=== PATIENT | male | born 1990 | race African-American/Black ===

== ENCOUNTER → 2017-04-28 | Outpatient (CLI) | payer OTHER ==
--- NOTE | 2017-04-28 15:28 | XR ---
EXAMINATION TYPE: XR spine complete AP and Lat DATE OF EXAM: 04/28/2017 COMPARISON: 10/12/2015 HISTORY: Pain TECHNIQUE: 2 views of the cervical, 2 views of the thoracic, and 2 views of the lumbar spine are subm itted. FINDINGS: Cervical spine: Postsurgical changes appear during anatomic alignment. Degenerative disc disease C4-C 5. There is a retrolisthesis of C2 relative to C3 by approximately 2 mm. Prevertebral soft tissue str uctures within normal limits. Thoracic spine: There is postsurgical change involving the upper thoracic spine and apparent compress ion deformity in the region. Remaining portion of the thoracic spine is in anatomic alignment with th e pedicles are intact and no significant degenerative disc disease. Slight curvature of the upper tho racic spine near the area of surgery. Lumbar spine: There is degenerative disc disease L4-5 and L5-S1. Pedicles intact. No compression defo rmities. IMPRESSION: 1. Mild degenerative disc disease lower lumbar spine. 2. Postsurgical changes involving the cervical and thoracic spine. 3. Loss of cervical lordosis with a 2 mm retrolisthesis of C2 relative to C3. Correlate clinically.
== END ==
LOC: RADXRMAIN 14:52
PROVIDERS: ATTEND Internal Medicine
DX: M43.12 Spondylolisthesis, cervical region (principal); M47.816 Spondylosis without myelopathy or radiculopathy, lumbar region; Z98.890 Other specified postprocedural states
CPT/HCPCS: 72082

== ENCOUNTER 2018-08-04 12:10 | Inpatient (IN) | payer OTHER ==
[2018-08-04] MEDS ORDERED: SODIUM CHLORIDE 0.9% 1,000 ML IV STA (12:32)
--- NOTE | 2018-08-04 13:14 | ED ---
Syncope HPI - General Chief Complaint: Syncope Stated Complaint: Fell, head injury Time Seen by Provider: 08/04/18 12:23 Source: patient, family, RN notes reviewed Mode of arrival: wheelchair Limitations: no limitations - History of Present Illness Initial Comments: 28-year-old male presents emergency Department chief complaint of syncopal episode. Patient states that he is currently residing at the [facility]. Patient states that he went to stand up quickly from laying down to go to the bathroom states that he felt off balance, short of breath at that time. Patient states that he try to take a couple deep breaths and states that he woke up in the bathroom on the floor. Patient states he does have a headache and he has a knot on the back of his head. Patient states she does not report passing out. Patient denies any neck or back pain at this time. Patient denies any extremity injury. He states he does feel off, dizzy. Girlfriend in the room states that he just not his usual self that he is confused at times. Patient is able to ambulate with no difficulty. - Related Data Home Medications Medication Instructions Recorded Confirmed Acetaminophen 40 mg/1.25 ml 160 mg PO Q4H PRN 08/04/18 08/04/18 [Tylenol 40 mg/1.25 ml Oral Syringe] Multivitamin/Iron/Folic Acid 1 tab PO DAILY 08/04/18 08/04/18 [Centrum Adults Tablet] Allergies Allergy/AdvReac Type Severity Reaction Status Date / Time No Known Allergies Allergy Verified 08/04/18 12:58 Review of Systems ROS Statement: Those systems with pertinent positive or pertinent negative responses have been documented in the HPI. ROS Other: All systems not noted in ROS Statement are negative. Past Medical History Past Medical History: No Reported History History of Any Multi-Drug Resistant Organisms: None Reported Past Surgical History: Back Surgery Additional Past Surgical History / Comment(s): neck surgery Past Psychological History: No Psychological Hx Reported Smoking Status: Current every day smoker Past Alcohol Use History: None Reported Past Drug Use History: Marijuana General Exam Limitations: no limitations General appearance: alert, in no apparent distress Head exam: Present: atraumatic, normocephalic. Absent: normal inspection ( Hematoma noted on the occipital region of the scalp) Eye exam: Present: normal appearance, PERRL, EOMI. Absent: scleral icterus, conjunctival injection, periorbital swelling ENT exam: Present: normal exam, normal oropharynx, mucous membranes moist Neck exam: Present: normal inspection, full ROM. Absent: tenderness, meningismus, lymphadenopathy Respiratory exam: Present: normal lung sounds bilaterally. Absent: respiratory distress, wheezes, rales, rhonchi, stridor Cardiovascular Exam: Present: regular rate, normal rhythm, normal heart sounds. Absent: systolic murmur, diastolic murmur, rubs, gallop, clicks GI/Abdominal exam: Present: soft, normal bowel sounds. Absent: distended, tenderness, guarding, rebound, rigid Extremities exam: Present: normal inspection, full ROM, normal capillary refill. Absent: tenderness, pedal edema, joint swelling, calf tenderness Neurological exam: Present: alert, oriented X3, CN II-XII intact, reflexes normal, other (GCS of 15, finger to nose intact without over shooting). Absent : motor sensory deficit Skin exam: Present: warm, dry, intact, normal color. Absent: rash Course Vital Signs 08/04/18 08/04/18 12:25 13:45 Temperature 96.8 F L Pulse Rate 66 77 Respiratory 18 20 Rate Blood Pressure 145/94 145/94 O2 Sat by Pulse 98 97 Oximetry Medical Decision Making - Medical Decision Making 28-year-old male present emergency department for syncopal episode. Patient did have CT, lab work, EKG. Unremarkable imaging. Patient is cleared from his head injury there is no significant head injury noted. Patient will be admitted for cardiology evaluation, echocardiogram and hydration at this time. - Lab Data Result diagrams: 08/04/18 12:40 08/04/18 12:40 Lab Results 08/04/18 08/04/18 08/04/18 Range/Units 12:40 12:40 12:40 WBC 17.3 H (3.8-10.6) k/uL RBC 4.73 (4.30-5.90) m/uL Hgb 14.8 (13.0-17.5) gm/dL Hct 45.2 (39.0-53.0) % MCV 95.4 (80.0-100.0) fL MCH 31.2 (25.0-35.0) pg MCHC 32.7 (31.0-37.0) g/dL RDW 13.2 (11.5-15.5) % Plt Count 244 (150-450) k/uL Neutrophils % 90 % Lymphocytes % 5 % Monocytes % 4 % Eosinophils % 1 % Basophils % 0 % Neutrophils # 15.6 H (1.3-7.7) k/uL Lymphocytes # 0.9 L (1.0-4.8) k/uL Monocytes # 0.6 (0-1.0) k/uL Eosinophils # 0.1 (0-0.7) k/uL Basophils # 0.0 (0-0.2) k/uL PT 10.5 (9.0-12.0) sec INR 1.0 (<1.2) APTT 24.5 (22.0-30.0) sec D-Dimer 3.92 H (<0.60) mg/L FEU Sodium 141 (137-145) mmol/L Potassium 4.6 (3.5-5.1) mmol/L Chloride 105 (98-107) mmol/L Carbon Dioxide 29 (22-30) mmol/L Anion Gap 7 mmol/L BUN 15 (9-20) mg/dL Creatinine 0.73 (0.66-1.25) mg/dL Est GFR (CKD-EPI)AfAm >90 (>60 ml/min/1.73 sqM) Est GFR (CKD-EPI)NonAf >90 (>60 ml/min/1.73 sqM) Glucose 99 (74-99) mg/dL Calcium 10.0 (8.4-10.2) mg/dL Magnesium 1.7 (1.6-2.3) mg/dL Total Bilirubin 0.4 (0.2-1.3) mg/dL AST 28 (17-59) U/L ALT 40 (21-72) U/L Alkaline Phosphatase 62 (38-126) U/L Troponin I (0.000-0.034) ng/mL Total Protein 7.5 (6.3-8.2) g/dL Albumin 4.3 (3.5-5.0) g/dL Urine Color Urine Appearance (Clear) Urine pH (5.0-8.0) Ur Specific Stephan (1.001-1.035) Urine Protein (Negative) Urine Glucose (UA) (Negative) Urine Ketones (Negative) Urine Blood (Negative) Urine Nitrite (Negative) Urine Bilirubin (Negative) Urine Urobilinogen (<2.0) mg/dL Ur Leukocyte Esterase (Negative) 08/04/18 08/04/18 Range/Units 12:40 13:45 WBC (3.8-10.6) k/uL RBC (4.30-5.90) m/uL Hgb (13.0-17.5) gm/dL Hct (39.0-53.0) % MCV (80.0-100.0) fL MCH (25.0-35.0) pg MCHC (31.0-37.0) g/dL RDW (11.5-15.5) % Plt Count (150-450) k/uL Neutrophils % % Lymphocytes % % Monocytes % % Eosinophils % % Basophils % % Neutrophils # (1.3-7.7) k/uL Lymphocytes # (1.0-4.8) k/uL Monocytes # (0-1.0) k/uL Eosinophils # (0-0.7) k/uL Basophils # (0-0.2) k/uL PT (9.0-12.0) sec INR (<1.2) APTT (22.0-30.0) sec D-Dimer (<0.60) mg/L FEU Sodium (137-145) mmol/L Potassium (3.5-5.1) mmol/L Chloride (98-107) mmol/L Carbon Dioxide (22-30) mmol/L Anion Gap mmol/L BUN (9-20) mg/dL Creatinine (0.66-1.25) mg/dL Est GFR (CKD-EPI)AfAm (>60 ml/min/1.73 sqM) Est GFR (CKD-EPI)NonAf (>60 ml/min/1.73 sqM) Glucose (74-99) mg/dL Calcium (8.4-10.2) mg/dL Magnesium (1.6-2.3) mg/dL Total Bilirubin (0.2-1.3) mg/dL AST (17-59) U/L ALT (21-72) U/L Alkaline Phosphatase (38-126) U/L Troponin I <0.012 (0.000-0.034) ng/mL Total Protein (6.3-8.2) g/dL Albumin (3.5-5.0) g/dL Urine Color Yellow Urine Appearance Clear (Clear) Urine pH 8.0 (5.0-8.0) Ur Specific Stephan 1.015 (1.001-1.035) Urine Protein Negative (Negative) Urine Glucose (UA) Negative (Negative) Urine Ketones Negative (Negative) Urine Blood Negative (Negative) Urine Nitrite Negative (Negative) Urine Bilirubin Negative (Negative) Urine Urobilinogen <2.0 (<2.0) mg/dL Ur Leukocyte Esterase Negative (Negative) Disposition Clinical Impression: Syncope, Leukocytosis, Head injury Disposition: ADMITTED IP TO THIS HOSP Condition: Fair Referrals: Kylee Brown MD [Primary Care Provider] - 1-2 days
[2018-08-04 13:20] LABS: Basophils % (A) 0 %; Eosinophils # (A) 0.1 k/uL (0-0.7); Eosinophils % (A) 1 %; HCT 45.2 % (39.0-53.0); HGB 14.8 gm/dL (13.0-17.5); Lymphocytes # (A) 0.9 k/uL (1.0-4.8); Lymphocytes % (A) 5 %; MCH 31.2 pg (25.0-35.0); MCHC 32.7 g/dL (31.0-37.0); MCV 95.4 fL (80.0-100.0); Mean Platelet Volume 7.5; Monocytes # (A) 0.6 k/uL (0-1.0); Monocytes % (A) 4 %; Neutrophils # (A) 15.6 k/uL (1.3-7.7); Neutrophils % (A) 90 %; Platelet Count 244 k/uL (150-450); RBC 4.73 m/uL (4.30-5.90); RDW 13.2 % (11.5-15.5); WBC 17.3 k/uL (3.8-10.6)
[2018-08-04 13:30] LABS: ALT 40 U/L (21-72); AST 28 U/L (17-59); Albumin 4.3 g/dL (3.5-5.0); Alkaline Phosphatase 62 U/L (38-126); Anion Gap 7 mmol/L; Blood Urea Nitrogen 15 mg/dL (9-20); Carbon Dioxide 29 mmol/L (22-30); Chloride 105 mmol/L (98-107); Glucose 99 mg/dL (74-99); Magnesium 1.7 mg/dL (1.6-2.3); Potassium 4.6 mmol/L (3.5-5.1); Sodium 141 mmol/L (137-145); Total Bilirubin 0.4 mg/dL (0.2-1.3); Total Protein 7.5 g/dL (6.3-8.2)
[2018-08-04 13:33] LABS: Partial Thromboplastin Time 24.5 sec (22.0-30.0); Prothrombin Time 10.5 sec (9.0-12.0)
[2018-08-04 13:36] LABS: D-Dimer 3.92 mg/L FEU (<0.60)
--- NOTE | 2018-08-04 13:36 | XR ---
EXAMINATION TYPE: XR chest 2V DATE OF EXAM: 08/04/2018 COMPARISON: NONE HISTORY: Syncope and weakness. TECHNIQUE: Frontal and lateral views of the chest are obtained. FINDINGS: There is no focal air space opacity, pleural effusion, or pneumothorax seen. The cardiac silhouette size is within normal limits. Fusion plate lower cervical spine is noted. Posterior fusion hardware in cervical spine is partially imaged. Additional posterior fusion hardware upper thoracic spine is noted. IMPRESSION: No acute cardiopulmonary process.
--- NOTE | 2018-08-04 13:44 | CT ---
EXAMINATION TYPE: CT brain jaida mirza DATE OF EXAM: 08/04/2018 COMPARISON: 07/13/2012 HISTORY: Fall today with posterior injury. Head and neck pain. CT DLP: 1500.[address] Brain: Unenhanced CT of the brain was performed. The ventricles, basal cisterns and sulci overlying the cerebral convexities demonstrate a normal appe arance. There is no evidence for intracranial hemorrhage or sulcal effacement. No mass effects are seen. If symptoms persist consider MRI. Osseous calvarium is intact. IMPRESSION: No acute intracranial process CT Cervical Spine: Unenhanced CT of the cervical spine was performed with bone and soft tissue window settings submitted . Coronal and sagittal reconstruction is obtained. There is normal alignment and prevertebral soft tissues. I do not see evidence for fracture or sublu xation. Postoperative changes of ACDF with intervertebral stabilizer at C5-C7. Curvature of the cervi dipak spine convex to the left. The lung apices are clear. IMPRESSION: No evidence for acute fracture or subluxation of the cervical spine.
[2018-08-04 14:17] LABS: Appearance,Urine Clear (Clear); Bilirubin,Urine Negative (Negative); Blood,Urine Negative (Negative); Color,Urine Yellow; Glucose,Urine (UA) Negative (Negative); Ketones,Urine Negative (Negative); Leukocyte Esterase,Urine Negative (Negative); Nitrite,Urine Negative (Negative); Protein,Urine Negative (Negative); Specific Gravity,Urine 1.015 (1.001-1.035); Urobilinogen,Urine <2.0 mg/dL (<2.0)
--- NOTE | 2018-08-04 15:01 | CT ---
EXAMINATION TYPE: CT chest angio for PE DATE OF EXAM: 08/04/2018 COMPARISON: None HISTORY: Chest pain with shortness of breath CT DLP: 284 mGycm CONTRAST: CT chest with contrast and 3D reconstruction with MIP imaging is performed with IV Contrast, patient injected with 100 mL of Isovue 370. Contrast-enhanced CT of the chest was performed through the course of the pulmonary arteries with vaishnavi g and mediastinal window settings submitted. 3D reconstruction with MIP imaging was also performed. PULMONARY ARTERIES: The pulmonary arteries and their major tributaries are patent. I do not see reji dence for sizable filling defect to suggest pulmonary embolic process. LUNGS: The lungs are clear and free of infiltrate. No evidence for atelectasis. No pulmonary nodule or mass is detected. No pleural effusion. MEDIASTINUM: Thoracic aorta is of normal caliber,however, evaluation is limited given timing of the contrast bolus. If there is concern for thoracic aortic pathology consider ANA. Correlate clinicall y . The heart is not enlarged. No evidence for mediastinal mass. No mediastinal lymph nodes greater than 1cm. HILAR STRUCTURES: No evidence for mass. No hilar lymph nodes greater than 1 cm. UPPER ABDOMEN: No significant abnormality is seen. IMPRESSION: 1. No evidence for Pulmonary embolism at this time.
[2018-08-04] MEDS ORDERED: METOCLOPRAMIDE 5 MG/ML 2 ML VIAL IVP STA (15:56)
[2018-08-04] MEDS ORDERED: diphenhydrAMINE 50 MG/ML 1 ML VIAL IVP STA (15:57)
[2018-08-04] MEDS ORDERED: NALOXONE 0.4 MG/ML 1 ML VIAL IV PRN (16:00)
[2018-08-04] MEDS ORDERED: ONDANSETRON 4 MG/2 ML VIAL IVP PRN (16:00)
[2018-08-04] MEDS: ACETAMINOPHEN TAB 325 MG TAB PO PRN ×2 (17:41→22:56)
[2018-08-04] MEDS: SODIUM CHLORIDE 0.9% 1,000 ML IV SCH (17:42)
[2018-08-04 20:20] VITALS: BMI 24.3
[2018-08-05] MEDS: ACETAMINOPHEN TAB 325 MG TAB PO PRN ×2 (04:39→20:51)
[2018-08-05] MEDS: SODIUM CHLORIDE 0.9% 1,000 ML IV SCH ×2 (04:41→14:07)
[2018-08-05] MEDS ORDERED: KETOROLAC 30 MG/ML 1 ML VIAL IVP STA (08:56)
--- NOTE | 2018-08-05 09:36 | P.CNNES ---
History of Present Illness Consult date: 08/05/18 Reason for Consult: Patient admitted with syncope vs. seizure. History of Present Illness: This patient is a 28-year-old right-handed white male who was in his usual state of health yesterday morning. Patient states that about 10 AM he had gone into the bathroom and it just finished urinating when he stepped out of the bathroom he was feeling lightheaded and off balance. Patient has no recollection what happened next but he found himself collapsed on the floor of the bathroom for at least 10 minutes and is unsure what had happened. Patient states that he was feeling increased pressure on his chest as if his heart was pounding just prior to this event. On further questioning he did feel slightly diaphoretic prior to the event as well. He began taking some deep breaths and apparently had some shortness of breath at the onset of the symptoms. He then remembers being on the ground and feeling very tired and groggy. He did not have any loss of bowel or bladder control. When he stood up he felt off- balance and had to have his help him. She noted that he was just not himself and he appeared to be very pale and complexion. His was able to help him into the other room and he appeared to be still having symptoms of lightheadedness. Patient denies having any previous history of seizures or acute syncopal episodes in the past. He did not bite his tongue and once again had no evidence of ongoing seizure activity when his found him in the bathroom. The patient was brought into the emergency room at [facility] and was evaluated by Physician [facility]. He was sent for a computed tomography scan of the brain which revealed no acute intracranial process. Computed tomography scan of the cervical spine revealed no evidence of acute fracture or subluxation of the cervical spine. He was also sent for a CTA angiogram of the chest which came back negative for pulmonary embolism. Once again the patient is resting comfortably but still feels lightheaded at times. He is going to be evaluated by cardiology today for further cardiac workup as well. Patient does have a slight headache today. We have recommended further evaluation for the patient including an EEG to rule out seizure disorder as well as MRI of the brain. Patient did not sustain any major injury to the head with no lacerations or contusions. His is at bedside and states that she did not appreciate any seizure activity when she found him on the floor. She did mention however that he did appear to be quite pale. The patient is now admitted and neurology has been consulted for further evaluation and recommendations. Review of Systems Constitutional: Denies chills, Denies fever Eyes: denies blurred vision, denies pain Ears, nose, mouth and throat: Denies headache, Denies sore throat Cardiovascular: Denies chest pain, Denies shortness of breath Respiratory: Denies cough Gastrointestinal: Denies abdominal pain, Denies diarrhea, Denies nausea, Denies vomiting Musculoskeletal: Denies myalgias Integumentary: Denies pruritus, Denies rash Neurological: Reports confusion, Reports headaches, Reports syncope, Denies numbness, Denies weakness Psychiatric: Denies anxiety, Denies depression Endocrine: Denies fatigue, Denies weight change Past Medical History Past Medical History: No Reported History History of Any Multi-Drug Resistant Organisms: None Reported Past Surgical History: Back Surgery Additional Past Surgical History / Comment(s): neck surgery, L4-L7 Fusion, Past Anesthesia/Blood Transfusion Reactions: No Reported Reaction Past Psychological History: No Psychological Hx Reported Smoking Status: Current every day smoker Past Alcohol Use History: None Reported Past Drug Use History: Marijuana Medications and Allergies Home Medications Medication Instructions Recorded Confirmed Type Acetaminophen 40 mg/1.25 ml 160 mg PO Q4H PRN 08/04/18 08/04/18 History [Tylenol 40 mg/1.25 ml Oral Syringe] Multivitamin/Iron/Folic Acid 1 tab PO DAILY 08/04/18 08/04/18 History [Centrum Adults Tablet] Allergies Allergy/AdvReac Type Severity Reaction Status Date / Time No Known Allergies Allergy Verified 08/04/18 12:58 Physical Examination - Vital Signs Vital Signs: Vital Signs Temp Pulse Pulse Resp BP BP Pulse Ox 08/05/18 07:15 98.7 F 88 18 107/65 98 08/05/18 04:00 91 18 08/05/18 03:06 85 18 126/78 98 08/05/18 00:00 91 18 08/04/18 23:08 100.2 F H 91 18 111/65 98 08/04/18 20:00 100.2 F H 75 18 120/70 98 08/04/18 17:46 86 18 116/86 99 08/04/18 16:05 99 F 83 20 129/74 96 08/04/18 13:45 77 20 145/94 97 08/04/18 12:25 96.8 F L 66 18 145/94 98 Intake and Output 08/04/18 08/05/18 08/05/18 22:59 06:59 14:59 Intake Total 600 400 Balance 600 400 Intake: Intake, IV Titration 600 Amount Sodium Chloride 0.9% 1, 600 000 ml @ 75 mls/hr IV . [id number] [facility] Rx#:[id number] Oral 400 Other: Weight 86.183 kg - Constitutional General appearance: average body habitus, cooperative - EENT EENT: PERRL, mucous membranes moist - Respiratory Respiratory: lungs clear, normal breath sounds - Cardiovascular Cardiovascular: regular rate, normal S1, normal S2 Extremities: no peripheral edema bilaterally - Gastrointestinal Gastrointestinal: normoactive bowel sounds - Integumentary Integumentary: normal - Neurologic Cranial nerve examination: PERRL, VFF, V1/V2/V3 grossly intact, face symmetric, intact gag reflex, intact corneal reflex, palatal deviation Speech examination: intact Sensorimotor examination: intact Motor examination - right side: 4/5: biceps, triceps, wrist flexion, wrist extension, 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, hip flexors, knee extensors, dorsiflexion, toe extension (EHL) , plantarflexion Motor examination - left side: 4/5: biceps, triceps, wrist flexion, wrist extension, 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, hip flexors, knee extensors, dorsiflexion, toe extension (EHL) , plantarflexion Detailed sensory examination: intact Reflex and gait examination: intact Reflexes: 1+: ankle, bicep, knee, tricep - Musculoskeletal Musculoskeletal: no pain - Psychiatric Psychiatric: mood/affect appropriate, cooperative Results - Laboratory Findings CBC and BMP: 08/04/18 12:40 08/04/18 12:40 Abnormal Lab Findings: Abnormal Labs 08/04/18 08/04/18 12:40 12:40 WBC 17.3 H Neutrophils # 15.6 H Lymphocytes # 0.9 L D-Dimer 3.92 H Assessment and Plan (1) Vasovagal syncope Current Visit: Yes Status: Acute Code(s): R55 - SYNCOPE AND COLLAPSE SNOMED Code(s): 185935309 (2) Hx of cervical spine surgery Current Visit: Yes Status: Acute Code(s): Z98.890 - OTHER SPECIFIED POSTPROCEDURAL STATES SNOMED Code(s): 749635914 (3) Head injury Current Visit: Yes Status: Acute Code(s): S09.90XA - UNSPECIFIED INJURY OF HEAD, INITIAL ENCOUNTER SNOMED Code(s): 93009218 (4) Leukocytosis Current Visit: Yes Status: Acute Code(s): D72.829 - ELEVATED WHITE BLOOD CELL COUNT, UNSPECIFIED SNOMED Code(s): 345315947 Plan: This patient is a 28-year-old male who was admitted to [facility] yesterday after having an acute syncopal episode at home. Patient states that about 10 AM he had gone into the bathroom and it just finished urinating when he stepped out and felt lightheaded and near syncopal. He collapsed to the ground and was possibly on the ground for at least 10 minutes before he realized what had occurred. His found him to be very unsteady when she assisted him to the other room and he appeared to be very pale in complexion. He denies any previous history of syncope or seizures. He has had some cardiac abnormalities in the past but has not required any major intervention. He has had near syncope episode about a year ago. The patient did not have any evidence of seizure-like activity during this event. He was brought into the emergency room and subsequent admitted to Hospital. Computed tomography scan of the brain and cervical spine were negative. CT angiogram of the chest was negative for pulmonary embolus. We have recommended the patient undergo a MRI of the brain as well as a routine EEG for further evaluation of near syncope. His clinical history suggests most likely vasovagal syncope related to micturition as a cause of his episode. We will await further evaluation by cardiology as well. Patient is advised of the [place] driving law which states he should not be driving for appeared of 6 months following any seizure and/or syncopal episode. We have recommended further monitoring of this patient to rule out orthostatic hypotension. We will await further recommendations from cardiology in terms of assessment of this near syncopal episode. His overall prognosis at this time remains very guarded. Time with Patient: Greater than 30
--- NOTE | 2018-08-05 12:21 | P.CRDCN ---
History of Present Illness History of present illness: This is a pleasant 28-year-old male past medical history significant for chronic nicotine dependence. He denies history of coronary artery disease, hypertension, dyslipidemia or diabetes mellitus. He states his mother underwent open heart surgery in her 30s for a hole in her heart. We have been asked to see him in consultation for syncope. Yesterday morning he woke up to use the bathroom, upon rising from bed he felt mildly lightheaded. He continued on to use the bathroom to urinate. No bowel mvement. After finishing urinating he started walking out of the bathroom and started feeling his heart beating harder in his chest. He denies a rapid heart beat, just that it felt like it was beating hard. He denies chest pain, shortness of breath, nausea, vomiting or diaphoresis. Next thing he can recall he woke up on the bathroom floor. Upon waking up he he thinks he was mildly diaphoretic but denies feeling any further palpitations. He denies any obvious seizure activity or loss of bowel/bladder. He denies history of seizures in the past. He continues to feel light headed that is worse with movement. He also complains of feeling congested. Denies cough, fever or chills. EKG reveals sinus mechanism with incomplete right bundle branch block and rightward axis. Chest x-ray is negative for an acute cardiopulmonary process. CT head and cervical spine is negative for an acute process. CT angio chest negative for pulmonary embolism. Laboratory data reviewed, WBC 17.3, hemoglobin 14.8, platelets 244, d-dimer 3.92 , sodium 141, potassium 4.6, magnesium 1.7, creatinine 0.73, cardiac enzymes negative 1. He takes no daily cardiac medications. At the time of my exam: CONSTITUTIONAL: Denies fever. Denies chills. EYES: Denies blurred vision. Denies vision changes. Denies eye pain. EARS, NOSE, MOUTH & THROAT: Denies headache. Denies sore throat. Denies ear pain. CARDIOVASCULAR: Denies chest pain. Denies shortness of breath. Denies orthopnea. Denies PND. Denies palpitations. RESPIRATORY: Denies cough. GASTROINTESTINAL: Denies abdominal pain. Denies diarrhea. Denies constipation. Denies nausea. Denies vomiting. MUSCULOSKELETAL: Denies myalgias. INTEGUMENTARY: Denies pruitis. Denies rash. NEUROLOGIC: Denies numbness. Denies tingling. Denies weakness. PSYCHIATRIC: Denies anxiety. Denies depression. ENDOCRINE: Denies fatigue. Denies weight change. Denies polydipsia. Denies polyurina. GENITOURINARY: Denies burning, hematuria or urgency with micturation. HEMATOLOGIC: Denies history of anemia. Denies bleeding. Blood pressure 107/65 heart rate 81 afebrile maintaining oxygen saturation on room air GENERAL: This is a 28-year-old male in no apparent distress at the time of my examination. HEENT: Head is atraumatic, normocephalic. Pupils are equal, round. Sclerae anicteric. Conjunctivae are clear. Mucous membranes of the mouth are moist. Neck is supple. There is no jugular venous distention. No carotid bruit is heard. LUNGS: Clear to auscultation no wheezes, rales or rhonchi. No chest wall tenderness is noted on palpation or with deep breathing. HEART: Regular rate and rhythm without murmurs, rubs or gallops. S1 and S2 heard. ABDOMEN: Soft, nontender. Bowel sounds are heard. No organomegaly noted. EXTREMITIES: No evidence of peripheral edema and no calf tenderness noted. VASCULAR: Radial and dorsalis pedis pulses palpated, no evidence of clubbing. NEUROLOGIC: Patient is awake, alert and oriented x3. ASSESSMENT Syncope, possibly related to vasovagal reaction Leukocytosis Elevated d-dimer PLAN Obtain 2D echocardiogram and doppler study to assess cardiac structure and function. Ongoing evaluation with neurology with MRI and EEG. Ongoing telemetry monitoring for any acute arrhythmia. Check urine drug screen. Thank you kindly for this consultation. Nurse Practitioner note has been reviewed, I agree with a documented findings and plan of care. Patient was seen and examined. Past Medical History Past Medical History: No Reported History History of Any Multi-Drug Resistant Organisms: None Reported Past Surgical History: Back Surgery Additional Past Surgical History / Comment(s): neck surgery, L4-L7 Fusion, Past Anesthesia/Blood Transfusion Reactions: No Reported Reaction Past Psychological History: No Psychological Hx Reported Smoking Status: Current every day smoker Past Alcohol Use History: None Reported Past Drug Use History: Marijuana Medications and Allergies Home Medications Medication Instructions Recorded Confirmed Type Acetaminophen 40 mg/1.25 ml 160 mg PO Q4H PRN 08/04/18 08/04/18 History [Tylenol 40 mg/1.25 ml Oral Syringe] Multivitamin/Iron/Folic Acid 1 tab PO DAILY 08/04/18 08/04/18 History [Centrum Adults Tablet] Allergies Allergy/AdvReac Type Severity Reaction Status Date / Time No Known Allergies Allergy Verified 08/04/18 12:58 Physical Exam Vitals: Vital Signs Temp Pulse Pulse Resp BP BP Pulse Ox 08/05/18 07:15 98.7 F 88 18 107/65 98 08/05/18 04:00 91 18 08/05/18 03:06 85 18 126/78 98 08/05/18 00:00 91 18 08/04/18 23:08 100.2 F H 91 18 111/65 98 08/04/18 20:00 100.2 F H 75 18 120/70 98 08/04/18 17:46 86 18 116/86 99 08/04/18 16:05 99 F 83 20 129/74 96 08/04/18 13:45 77 20 145/94 97 08/04/18 12:25 96.8 F L 66 18 145/94 98 Intake and Output 08/04/18 08/05/18 08/05/18 22:59 06:59 14:59 Intake Total 600 800 Balance 600 800 Intake: Intake, IV Titration 600 Amount Sodium Chloride 0.9% 1, 600 000 ml @ 75 mls/hr IV . [id number] [facility] Rx#:[id number] Oral 400 Other 400 Other: Weight 86.183 kg Results 08/04/18 12:40 08/04/18 12:40 Cardiac Enzymes 08/04/18 08/04/18 Range/Units 12:40 12:40 AST 28 (17-59) U/L Troponin I <0.012 (0.000-0.034) ng/mL Coagulation 08/04/18 Range/Units 12:40 PT 10.5 (9.0-12.0) sec APTT 24.5 (22.0-30.0) sec CBC 08/04/18 Range/Units 12:40 WBC 17.3 H (3.8-10.6) k/uL RBC 4.73 (4.30-5.90) m/uL Hgb 14.8 (13.0-17.5) gm/dL Hct 45.2 (39.0-53.0) % Plt Count 244 (150-450) k/uL Comprehensive Metabolic Panel 08/04/18 Range/Units 12:40 Sodium 141 (137-145) mmol/L Potassium 4.6 (3.5-5.1) mmol/L Chloride 105 (98-107) mmol/L Carbon Dioxide 29 (22-30) mmol/L BUN 15 (9-20) mg/dL Creatinine 0.73 (0.66-1.25) mg/dL Glucose 99 (74-99) mg/dL Calcium 10.0 (8.4-10.2) mg/dL AST 28 (17-59) U/L ALT 40 (21-72) U/L Alkaline Phosphatase 62 (38-126) U/L Total Protein 7.5 (6.3-8.2) g/dL Albumin 4.3 (3.5-5.0) g/dL Current Medications Generic Name Dose Route Start Last Admin Trade Name Freq PRN Reason Stop Dose Admin Acetaminophen 650 mg 08/04/18 16:00 08/05/18 04:39 Tylenol Tab PO 650 mg Q6HR PRN Administration Mild Pain or Fever > 100.5 Sodium Chloride 1,000 mls @ 75 mls/hr 08/04/18 16:00 08/05/18 04:41 Saline 0.9% IV 75 mls/hr .[id number] [facility] Administration Naloxone HCl 0.2 mg 08/04/18 16:00 Narcan IV Q2M PRN Opioid Reversal Ondansetron HCl 4 mg 08/04/18 16:00 Zofran IVP Q8HR PRN Nausea And Vomiting Intake and Output 08/04/18 08/05/18 08/05/18 22:59 06:59 14:59 Intake Total 600 800 Balance 600 800 Intake: Intake, IV Titration 600 Amount Sodium Chloride 0.9% 1, 600 000 ml @ 75 mls/hr IV . [id number] [facility] Rx#:[id number] Oral 400 Other 400 Other: Weight 86.183 kg 08/04/18 12:40 08/04/18 12:40
--- NOTE | 2018-08-05 13:24 | MR ---
EXAMINATION TYPE: MR brain wo con DATE OF EXAM: 08/05/2018 COMPARISON: CT brain from yesterday and older CT 2012 HISTORY: Patient with syncopal episode and head trauma TECHNIQUE: Multiplanar, multisequence imaging of the brain and brainstem is performed without IV cont rast. FINDINGS: Diffusion weighted images demonstrate no evidence of a recent infarct or other diffusion abnormality. There is no worrisome extra-axial fluid collection. The ventricular system and cisternal spaces are normal in size and appearance. The brain volume is age appropriate. There is occasional tiny focus o f T2 hyperintensity scattered throughout the white matter. Roughly 10-15 lesions are felt present mos t numerous on axial image 20, all lesions are punctate or measuring under 4 mm in size. T2 Star weigh alfa images show no suspicious intraparenchymal blood product. There is moderate size high right occip ital scalp hematoma extending to right and left aspects slightly more prominent or larger than visual ized on CT. Midline structures demonstrate normal morphology. The craniocervical junction appears within normal limits. Normal vascular flow voids are present. The visualized sinuses are clear and the globes are i ntact. Nasal septum remains slightly deviated to left of midline. IMPRESSION: No suspicious intraparenchymal blood product. Moderate size high midline acute occipital scalp hematoma larger in size versus recent CT.
--- NOTE | 2018-08-05 13:53 | P.HPIM ---
History of Present Illness 28-year-old pleasant gentleman came in after after syncopal episode patient is having generalized body aches fever mild photophobia patient does have a did have Surgeries in the past and upper thoracic surgeries patient does have some neck rigidity which is new and neck pain which is new from before. I'm obtaining influenza testing patient was a valid by neurology patient was evaluated for seizure disorder patient had an MRI which was which did not show any significant abnormality and the patient appeared to have vasovagal syncope. Testing his fever body aches. Probably has acute viral illness low possibility of viral meningitis which cannot be completely ruled out because of which I'll obtain an LP. Patient will not be started on any antibiotics and acyclovir at this time until we get the LP. Patient denied any fever chills awaiting echocardiogram because of his syncope. Patient did have palpitations before his syncopal episode felt lightheaded and lost consciousness for about 10 minutes no evidence of seizure-like activity loss of bowel or bladder incontinence, no tongue biting. Patient denied dysuria cough patient had an elevated d-dimer because of which in ER patient had a CT angios the chest which did not show any pulmonary embolism rest of the workup is all negative.patient has mild photophobia which started today. Kernig's and Brudzinski's signs are negative Review of Systems REVIEW OF SYSTEMS: CONSTITUTIONAL:mentioned in HPI HEENT: No recent visual problems or hearing problems. Denied any sore throat. CARDIOVASCULAR: No chest pain, orthopnea, PND, no palpitations, PULMONARY: No shortness of breath, no cough, no hemoptysis. GASTROINTESTINAL: No diarrhea, no nausea, no vomiting, no abdominal pain. NEUROLOGICAL: no weakness, no numbness. HEMATOLOGICAL: Denies any bleeding or petechiae. GENITOURINARY: Denies any burning micturition, frequency, or urgency. MUSCULOSKELETAL/RHEUMATOLOGICAL: any of neck pain and headache ENDOCRINE: Denies any polyuria or polydipsia. The rest of the 14-point review of systems is negative. Past Medical History Past Medical History: No Reported History History of Any Multi-Drug Resistant Organisms: None Reported Past Surgical History: Back Surgery Additional Past Surgical History / Comment(s): neck surgery, L4-L7 Fusion, Past Anesthesia/Blood Transfusion Reactions: No Reported Reaction Past Psychological History: No Psychological Hx Reported Smoking Status: Current every day smoker Past Alcohol Use History: None Reported Past Drug Use History: Marijuana Medications and Allergies Home Medications Medication Instructions Recorded Confirmed Type Acetaminophen 40 mg/1.25 ml 160 mg PO Q4H PRN 08/04/18 08/04/18 History [Tylenol 40 mg/1.25 ml Oral Syringe] Multivitamin/Iron/Folic Acid 1 tab PO DAILY 08/04/18 08/04/18 History [Centrum Adults Tablet] Allergies Allergy/AdvReac Type Severity Reaction Status Date / Time No Known Allergies Allergy Verified 08/04/18 12:58 Physical Exam Vitals: Vital Signs Temp Pulse Pulse Resp BP BP BP 08/05/18 11:34 98.5 F 81 16 118/74 08/05/18 07:15 98.7 F 88 18 107/65 08/05/18 04:00 91 18 08/05/18 03:06 85 18 126/78 08/05/18 00:00 91 18 08/04/18 23:08 100.2 F H 91 18 111/65 08/04/18 20:00 100.2 F H 75 18 120/70 08/04/18 17:46 86 18 116/86 08/04/18 16:05 99 F 83 20 129/74 Pulse Ox 08/05/18 11:34 97 08/05/18 07:15 98 08/05/18 04:00 08/05/18 03:06 98 08/05/18 00:00 08/04/18 23:08 98 08/04/18 20:00 98 08/04/18 17:46 99 08/04/18 16:05 96 Intake and Output 08/04/18 08/05/18 08/05/18 22:59 06:59 14:59 Intake Total 600 800 Balance 600 800 Intake: Intake, IV Titration 600 Amount Sodium Chloride 0.9% 1, 600 000 ml @ 75 mls/hr IV . [id number] [facility] Rx#:[id number] Oral 400 Other 400 Other: Weight 86.183 kg PHYSICAL EXAMINATION: GENERAL: The patient is alert and oriented x3, not in any acute distress. Well developed, well nourished. appears bit lethargic HEENT: Pupils are round and equally reacting to light. EOMI. No scleral icterus. No conjunctival pallor. Normocephalic, atraumatic. No pharyngeal erythema. No thyromegaly. CARDIOVASCULAR: S1 and S2 present. No murmurs, rubs, or gallops. PULMONARY: Chest is clear to auscultation, no wheezing or crackles. ABDOMEN: Soft, nontender, nondistended, normoactive bowel sounds. No palpable organomegaly. MUSCULOSKELETAL: No joint swelling or deformity. EXTREMITIES: No cyanosis, clubbing, or pedal edema. NEUROLOGICAL: Gross neurological examination did not reveal any focal deficits. mild photophobia but no phonophobia SKIN: No rashes. Results CBC & Chem 7: 08/04/18 12:40 08/04/18 12:40 Labs: Abnormal Lab Results - Last 24 Hours (Table) 08/04/18 Range/Units 12:40 D-Dimer 3.92 H (<0.60) mg/L FEU Thrombosis Risk Factor Assmnt - Choose All That Apply Any of the Below Risk Factors Present?: No Other Risk Factors: No Thrombosis Risk Factor Assessment Level: Very Low Risk Assessment and Plan Plan: -syncopal episode appears to be secondary to acute viral illness or a vasovagal event patient will continued on IV fluids echocardiogram will be obtained possibly of seizure is low although patient was evaluated by neurology for seizure. -Low-grade fever and generalized body aches probably secondary to acute viral illness considering her mild photophobia headache and increasing neck pain I cannot completely rule out viral meningitis possibility of bacterial meningitis is extremely low. We'll obtain lumbar puncture. Patient will not be started on any antibiotics at this included this time until number function is done. We 'll order influenza A and B testing infectious disease will be consulted. No pneumonia or urinary tract infection -back surgeries with fusion of L4 total 7 and neck surgery -nicotine abuse: Counseling was provided.
[2018-08-05] MEDS: KETOROLAC 30 MG/ML 1 ML VIAL IVP PRN ×2 (14:07→20:50)
[2018-08-05] MEDS ORDERED: SODIUM CHLORIDE 0.9% 1,000 ML IV ONE ×2 (19:51)
--- NOTE | 2018-08-05 19:54 | ECHOF ---
Referral Reason:Syncope MEASUREMENTS -------- HEIGHT: 182.9 cm WEIGHT: 86.2 kg BP: 126/78 IVSd: 1.0 cm (0.6 - 1.1) LVIDd: 4.7 cm (3.9 - 5.3) LVPWd: 1.2 cm (0.6 - 1.1) IVSs: 1.8 cm LVIDs: 2.3 cm LVPWs: 2.3 cm Ao Diam: 2.9 cm (2.0 - 3.7) AV Cusp: 2.5 cm (1.5 - 2.6) LA Diam: 3.8 cm (2.7 - 3.8) MV EXCURSION: 19.089 mm (> 18.000) MV EF SLOPE: 174 mm/s (70 - 150) EPSS: 0.3 cm MV E Santiago: 0.89 m/s MV DecT: 211 ms MV A Santiago: 0.66 m/s MV E/A Ratio: 1.35 RAP: 5.00 mmHg RVSP: 25.50 mmHg FINDINGS -------- Sinus rhythm. This was a technically good study. The left ventricular size is normal. Left ventricular wall thickness is normal. Overall left vent ricular systolic function is normal with, an EF between 55 - 60 %. The right ventricle is normal in size and function. The left atrium is normal in size. The right atrium is normal in size. The aortic valve is trileaflet, and appears structurally normal. No aortic stenosis or regurgitation. The mitral valve leaflets are mildly thickened. There is trace mitral regurgitation. Trace tricuspid regurgitation present. The right ventricular systolic pressure, as measured by Dopp ler, is 25.50mmHg. Pulmonic valve appears structurally normal. The aortic root size is normal. Normal inferior vena cava with normal inspiratory collapse consistent with estimated right atrial pre ssure of 5 mmHg. The pericardium is normal. CONCLUSIONS -------- 1. Sinus rhythm. 2. This was a technically good study. 3. The left ventricular size is normal. 4. Left ventricular wall thickness is normal. 5. Overall left ventricular systolic function is normal with, an EF between 55 - 60 %. 6. The right ventricle is normal in size and function. 7. The left atrium is normal in size. 8. The right atrium is normal in size. 9. The aortic valve is trileaflet, and appears structurally normal. No aortic stenosis or regurgitati on. 10. The mitral valve leaflets are mildly thickened. 11. There is trace mitral regurgitation. 12. Trace tricuspid regurgitation present. 13. The right ventricular systolic pressure, as measured by Doppler, is 25.50mmHg. 14. Pulmonic valve appears structurally normal. 15. The aortic root size is normal. 16. Normal inferior vena cava with normal inspiratory collapse consistent with estimated right atrial pressure of 5 mmHg. 17. The pericardium is normal. [employer]GAR CHIPPER MACHINE OPERATOR: Cher Peck RDCS
[2018-08-05] MEDS ORDERED: fentaNYL (PF) 50 MCG/ML 2 ML AMP IVP ONE (20:10)
--- NOTE | 2018-08-05 20:32 | EEG ---
ELECTROENCEPHALOGRAM REPORT DATE OF EE08/05/2018 ELECTROENCEPHALOGRAPHIC EXAMINATION REPORT: INDICATION FOR EXAMINATION: This patient is a 28-year-old male being evaluated for acute syncope and collapse. AGE: [age]. EEG FINDINGS: A routine 21-channel awake digital EEG recording was accomplished utilizing the 10-20 international system with bipolar and referential montages. The background activity in the most alert resting state consists of a low to medium amplitude, fairly well developed and well sustained 7-8 Hz activity over the posterior head regions. This posterior rhythm attenuates to eye opening. There is a small amount of low amplitude 18-20 Hz beta activity seen maximally over the anterior head regions. Muscle and movement artifact was observed on several occasions during the tracing. Hyperventilation was not performed. Photic stimulation at flash frequencies of 2-30 Hz produced a minimal occipital driving response. No epileptiform discharges were seen. IMPRESSION: This EEG is within normal limits for the patient's age. The EEG failed to reveal any focal, lateralized, or epileptiform abnormalities. Clinical correlation is recommended. MMODL / IJN: [id number] /
--- NOTE | 2018-08-05 20:42 | P.PCN ---
Date of Procedure: 08/05/18 Preoperative Diagnosis: Syncopal episode, possible acute head injury, meningismal signs and symptoms. Postoperative Diagnosis: Same Procedure(s) Performed: Diagnostic lumbar puncture Anesthesia: local Surgeon: Alphonso Mooney Estimated Blood Loss (ml): 0.1 IV fluids (ml): 30 Urine output (ml): 0 Pathology: other (4 specimen tubes numbered 1 through 4 filled sequentially with pink tinged cloudy CSF 3-4 mL per tube) Condition: stable Disposition: observation Indications for Procedure: Possible meningitis Operative Findings: See pathology above Description of Procedure: With the patient seated over the edge of the stretcher with his feet on a chair and after 50 g of fentanyl IV the lumbar back was sterilely prepped and draped. 0.1 mL of 2% plain lidocaine was used to raise a skin wheal over the L34 interspace and a 20-gauge quinke spinal needle was then advanced through the skin wheal with a moderate amount of difficulty into the spinal canal. 3-4 mL of lightly pink tinged somewhat cloudy CSF was then collected sequentially in specimen tubes numbered 1 through 4. The patient tolerated the procedure well and was discharged in stable condition back to his room on observation.
[2018-08-05 22:13] LABS: Glucose,CSF 63 mg/dL (40-70); Total Protein,CSF 89 mg/dL (12-60)
[2018-08-05 23:10] LABS: Appearance,CSF Blood Tinged
[2018-08-05 23:11] LABS: CSF Tube Number 4
[2018-08-05 23:31] LABS: Nucleated Cells, CSF 100 u/L (0-5); Red Blood Cell,CSF 4800 u/L (0-10)
[2018-08-05 23:40] LABS: Diff, Total Cells Cnt, CSF 100; Mononuclear WBC,CSF 36 %; Polynuclear WBC,CSF 64 %
[2018-08-05 23:41] LABS: Red Blood Cell, CSF Fresh 100 %
--- NOTE | 2018-08-05 23:44 | CONS ---
CONSULTATION DATE OF SERVICE: 08/05/2018 REASON FOR CONSULTATION: Fever and leukocytosis. HISTORY OF PRESENT ILLNESS: The patient is a 28-year-old male who was brought into the ER at [facility] yesterday after apparently having a syncopal episode. The patient said he went to stand up quickly from lying down to go to the bathroom. The patient felt off balance and short of breath. He fell to the ground. Subsequently he woke up on the bathroom floor. The patient has been complaining of a headache since then; not very clear if he hit his head or not. With these symptoms, the patient presented to the [facility] ER. On arrival, the patient had cervical and head CT with no evidence of any acute fracture or subluxation. A CT angiogram was negative for PE. The patient did spike a fever of 101 degrees Fahrenheit and his white count was mildly elevated. That prompted this infectious disease consultation. The patient still has a headache. Headache is described to be more throbbing in nature, almost 7 to 8 out of 10, and no radiation. The patient has some nausea but no vomiting. Did have slight photophobia. The patient denies having any chest pain or shortness of breath or cough. No abdominal pain. No diarrhea. REVIEW OF SYSTEMS: CONSTITUTIONAL: Positive for weakness, fever. EYES: No complaint. ENT: No complaint. RESPIRATORY: As per HPI. CARDIOVASCULAR: No complaint. GENITOURINARY: No complaint. GASTROINTESTINAL: No complaint. MUSCULOSKELETAL: No complaint. INTEGUMENTARY: No complaint. PSYCHOLOGICAL: No complaint. ENDOCRINE: No complaint. NEUROLOGICAL: As per HPI. PAST MEDICAL HISTORY: No major illnesses. PAST SURGICAL HISTORY: Back and neck surgery. SOCIAL HISTORY: Patient is a current everyday smoker. Admits to marijuana use. No drinking. ALLERGIES: NO KNOWN DRUG ALLERGIES. FAMILY HISTORY: No pertinent findings noticed. MEDICATIONS: The patient is currently on: 1. Zofran. 2. Narcan. 3. Toradol. 4. Tylenol. PHYSICAL EXAMINATION: Blood pressure is 116/64, pulse of 60, temperature of 100.8, T-max 101 degrees Fahrenheit. He is 97% on room air. General description is a middle-aged male lying in bed in no distress. No tachypnea or accessory muscle of respiration use. HEENT examination shows no pallor or scleral icterus. Oral mucosa membrane is dry. No pharyngeal erythema or thrush. NECK: Trachea is central. No thyromegaly. LUNGS: Unlabored breathing. Clear to auscultation. No wheeze or crackle. HEART: S1, S2. Regular rate and rhythm. ABDOMEN: Soft. No tenderness. No guarding or rigidity. EXTREMITIES: No edema of the feet. SKIN EXAMINATION: No rash or mass palpable. Neurologically the patient is awake, alert, oriented x3. No significant neck rigidity was noted. LABS: Hemoglobin is 14.8, white count 17.3, BUN of 15, creatinine 0.76. Electrolytes have been normal. Liver enzymes are normal. Urine is negative. Chest x-ray negative for pneumonia. DIAGNOSTIC IMPRESSION AND PLAN: Patient with a headache in this patient who presented to hospital with a syncopal episode. He did have a fall. This patient did have a fever on presentation but subsequently did have a low-grade fever of 101 later this evening. He had an elevated white count on admission, though none was repeated this morning. With his main symptom being headache, underlying viral meningitis is not entirely excluded. Clinically doubt bacterial meningitis, as the patient currently does not look toxic. PLAN: 1. Blood culture STAT. 2. Await the lumbar puncture; the fluid should be sent for cell count, differential, glucose and protein. 3. Check acute influenza swab. 4. Symptomatic treatment at this point, as clinical suspicion is low for underlying bacterial infection. Thank you for this consultation. Will follow this patient along with you. MMODL / IJN: [id number] /
[2018-08-06] MEDS: KETOROLAC 30 MG/ML 1 ML VIAL IVP PRN ×4 (01:56→19:40)
[2018-08-06 07:42] LABS: Basophils % (A) 0 %; Eosinophils # (A) 0.1 k/uL (0-0.7); Eosinophils % (A) 1 %; HCT 38.5 % (39.0-53.0); HGB 12.9 gm/dL (13.0-17.5); Lymphocytes # (A) 1.2 k/uL (1.0-4.8); Lymphocytes % (A) 21 %; MCH 32.3 pg (25.0-35.0); MCHC 33.4 g/dL (31.0-37.0); MCV 96.6 fL (80.0-100.0); Mean Platelet Volume 7.9; Monocytes # (A) 0.4 k/uL (0-1.0); Monocytes % (A) 7 %; Neutrophils # (A) 4.1 k/uL (1.3-7.7); Neutrophils % (A) 69 %; Platelet Count 168 k/uL (150-450); RBC 3.98 m/uL (4.30-5.90); RDW 13.2 % (11.5-15.5); WBC 5.9 k/uL (3.8-10.6)
[2018-08-06 07:52] LABS: Anion Gap 6 mmol/L; Blood Urea Nitrogen 11 mg/dL (9-20); Calcium 9.1 mg/dL (8.4-10.2); Carbon Dioxide 26 mmol/L (22-30); Chloride 110 mmol/L (98-107); Glucose 95 mg/dL (74-99); Potassium 4.2 mmol/L (3.5-5.1); Sodium 142 mmol/L (137-145)
[2018-08-06] MEDS: SODIUM CHLORIDE 0.9% 1,000 ML IV SCH (09:00)
[2018-08-06] MEDS: ACETAMINOPHEN TAB 325 MG TAB PO PRN ×2 (11:40→23:33)
[2018-08-06] MEDS ORDERED: VANCOMYCIN IV PER PHARMACY 1 EACH MISC MISCELLANE PRN (15:03)
--- NOTE | 2018-08-06 15:10 | P.PN ---
Subjective 28-year-old male came in because of syncopal episode which appeared to be vasovagal event but patient also had fever neck pain headache and some photophobia because of which lumbar puncture was done lumbar CSF analysis is consistent with a septic meningitis probably enteroviral, patient on IV antibiotics and runny treatment at this time patient really using Toradol for pain. Patient has some symptomatic improvement if he feels better he can be discharged tomorrow. 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 Influenza testing is negative. Patient had leukocytosis which improved. Echocardiogram is pending which was done as a part of for syncope workup patient had an MRI which did not show any encephalitis. Patient is not a antibodies at this time symptomatic supportive care for viral encephalitis. Constitutional: As mentioned in HPI Cardio vascular: denied any chest pain, palpitations Gastrointestinal some nausea no vomiting Pulmonary: Denied any shortness of breath cough Neurologic denied any new focal deficits All inpatient medications were reviewed and appropriate changes in these medications as dictated in the interval history and assessment and plan. Objective - Vital Signs Vital signs: Vital Signs Temp 97.8 F 08/06/18 07:20 Pulse 64 08/06/18 12:00 Resp 18 08/06/18 12:00 BP 131/68 08/06/18 07:20 Pulse Ox 97 08/06/18 07:20 Intake & Output 08/05/18 08/06/18 08/06/18 18:59 06:59 18:59 Intake Total 1118 850 400 Balance 1118 850 400 Intake: IV 50 Intake, IV Titration 600 Amount Sodium Chloride 0.9% 1, 600 000 ml @ 75 mls/hr IV . [id number] [facility] Rx#:[id number] Oral 718 200 400 Other 400 Other: Voiding Method Toilet # Voids 1 1 # Bowel Movements 1 - Exam PHYSICAL EXAMINATION: GENERAL: The patient is alert and oriented x3, not in any acute distress. Well developed, well nourished. appears bit lethargic HEENT: Pupils are round and equally reacting to light. EOMI. No scleral icterus. No conjunctival pallor. Normocephalic, atraumatic. No pharyngeal erythema. No thyromegaly. CARDIOVASCULAR: S1 and S2 present. No murmurs, rubs, or gallops. PULMONARY: Chest is clear to auscultation, no wheezing or crackles. ABDOMEN: Soft, nontender, nondistended, normoactive bowel sounds. No palpable organomegaly. MUSCULOSKELETAL: No joint swelling or deformity. EXTREMITIES: No cyanosis, clubbing, or pedal edema. NEUROLOGICAL: Gross neurological examination did not reveal any focal deficits. mild photophobia but no phonophobia SKIN: No rashes. - Labs CBC & Chem 7: 08/06/18 07:15 08/06/18 07:15 Labs: Abnormal Lab Results - Last 24 Hours (Table) 08/05/18 08/05/18 08/06/18 Range/Units 20:15 20:57 07:15 RBC 3.98 L (4.30-5.90) m/uL Hgb 12.9 L (13.0-17.5) gm/dL Hct 38.5 L (39.0-53.0) % Chloride (98-107) mmol/L CSF RBC 4800 H (0-10) u/L CSF Tot Nucleated Cells 100 H* (0-5) u/L CSF Total Protein 89 H (12-60) mg/dL 08/06/18 Range/Units 07:15 RBC (4.30-5.90) m/uL Hgb (13.0-17.5) gm/dL Hct (39.0-53.0) % Chloride 110 H (98-107) mmol/L CSF RBC (0-10) u/L CSF Tot Nucleated Cells (0-5) u/L CSF Total Protein (12-60) mg/dL Microbiology - Last 24 Hours (Table) 08/05/18 22:51 Blood Culture Gram Stain - Preliminary Blood 08/05/18 22:51 Blood Culture - Final Blood 08/05/18 20:15 CSF Gram Stain - Preliminary Cerebral Spinal Fluid CSF Culture - Preliminary Assessment and Plan Plan: -Aseptic meningitis management as mentioned above -syncopal episode appears to be secondary to acute viral illness or a vasovagal event patient will continued on IV fluids echocardiogram pending -back surgeries with fusion of L4 total 7 and neck surgery -nicotine abuse: Counseling was provided.
[2018-08-06] MEDS ORDERED: VANCOMYCIN 1,500 MG in SODIUM CHLORIDE 0.9% 250 ML IVPB SCH (16:00)
[2018-08-06] MEDS ORDERED: cefTRIAXone 2,000 MG in SODIUM CHLORIDE 0.9% 100 ML IVPB SCH (16:00)
--- NOTE | 2018-08-06 18:17 | P.PN ---
Subjective Progress Note Date: 08/06/18 This patient is a 28-year-old right-handed white male who was seen in neurology consultation yesterday for evaluation of syncope and collapse. Patient was sent for MRI of the brain following his fall as he did sustain some head trauma. MRI of the brain completed yesterday revealed no suspicious intraparenchymal blood product. There was a moderate-sized midline acute occipital scalp hematoma noted. No other abnormalities were detected. The patient spiked a temperature yesterday and there was concern for possibility of viral meningitis. He underwent a lumbar puncture yesterday by anesthesia. Results of his spinal fluid indicate most likely a viral meningitis. There was no bacterial infection noted on the Gram stain of the spinal fluid. He is being evaluated by infectious disease as well. Once again the patient is showing slight improvement today compared to yesterday. He did undergo routine EEG which we reviewed and is within normal limits for his age. No evidence of any underlying seizure discharge or epileptic focus. We reviewed the results of all of his testing today with the patient at length. The patient is sitting up and eating his dinner this evening. He seems to be doing much better in terms of his headache symptoms. He is now being treated for acute sepsis as well as his blood cultures did come back positive for gram-positive cocci. He is currently on a combination of Rocephin and vancomycin. This seems to be working quite well as he feels much better this evening. We did review the results of his EEG and MRI with him in detail. He does have evidence of a viral or aseptic meningitis which seems to be responding well to current line of treatment. We will await any further recommendations from infectious disease and treatment of his septic picture. Patient states that he has been up and ambulating in his room and has been doing fairly well. We will continue to follow him closely during this admission. His overall prognosis at this time remains guarded. Objective - Vital Signs Vital signs: Vital Signs Temp 97.8 F 08/06/18 15:16 Pulse 67 08/06/18 16:00 Resp 18 08/06/18 16:00 BP 132/70 08/06/18 15:16 Pulse Ox 97 08/06/18 15:16 Intake & Output 08/05/18 08/06/18 08/06/18 18:59 06:59 18:59 Intake Total 1118 850 400 Balance 1118 850 400 Intake: IV 50 Intake, IV Titration 600 Amount Sodium Chloride 0.9% 1, 600 000 ml @ 75 mls/hr IV . [id number] [facility] Rx#:[id number] Oral 718 200 400 Other 400 Other: Voiding Method Toilet # Voids 1 1 # Bowel Movements 1 - Exam Physical examination: PHYSICAL EXAMINATION: Patient is resting comfortably in bed. VITAL SIGNS: Blood pressure is [131/68]. Heart rate is [64]. Respiration is [18] . Temperature is [97.8]. HEENT: Head is atraumatic, neck is supple, there were no carotid bruits. CHEST: Lungs are clear to auscultation and percussion. CARDIAC: S1, S2 normal rate and rhythm. There is no murmur. ABDOMEN: Soft and nontender. Bowel sounds are present. EXTREMITIES: There is no pedal edema. Peripheral pulses are present. Neurological examination: Patient's neurological examination is nonfocal at this time. Patient appears to be much more at ease and less tense as compared to yesterday. He is alert and able to follow commands. His headache symptoms have improved from yesterday. He is afebrile this evening. - Labs CBC & Chem 7: 08/06/18 07:15 08/06/18 07:15 Labs: Abnormal Lab Results - Last 24 Hours (Table) 08/05/18 08/05/18 08/06/18 Range/Units 20:15 20:57 07:15 RBC 3.98 L (4.30-5.90) m/uL Hgb 12.9 L (13.0-17.5) gm/dL Hct 38.5 L (39.0-53.0) % Chloride (98-107) mmol/L CSF RBC 4800 H (0-10) u/L CSF Tot Nucleated Cells 100 H* (0-5) u/L CSF Total Protein 89 H (12-60) mg/dL 08/06/18 Range/Units 07:15 RBC (4.30-5.90) m/uL Hgb (13.0-17.5) gm/dL Hct (39.0-53.0) % Chloride 110 H (98-107) mmol/L CSF RBC (0-10) u/L CSF Tot Nucleated Cells (0-5) u/L CSF Total Protein (12-60) mg/dL Microbiology - Last 24 Hours (Table) 08/05/18 22:51 Blood Culture Gram Stain - Preliminary Blood 08/05/18 22:51 Blood Culture - Final Blood 08/05/18 20:15 CSF Gram Stain - Preliminary Cerebral Spinal Fluid CSF Culture - Preliminary Assessment and Plan (1) Vasovagal syncope Current Visit: Yes Status: Acute Code(s): R55 - SYNCOPE AND COLLAPSE SNOMED Code(s): 891980542 (2) Hx of cervical spine surgery Current Visit: Yes Status: Acute Code(s): Z98.890 - OTHER SPECIFIED POSTPROCEDURAL STATES SNOMED Code(s): 365678559 (3) Head injury Current Visit: Yes Status: Acute Code(s): S09.90XA - UNSPECIFIED INJURY OF HEAD, INITIAL ENCOUNTER SNOMED Code(s): 18110097 (4) Leukocytosis Current Visit: Yes Status: Acute Code(s): D72.829 - ELEVATED WHITE BLOOD CELL COUNT, UNSPECIFIED SNOMED Code(s): 781031940 Plan: This patient is a 28-year-old male who was admitted to hospital for evaluation of near syncope and collapse at home. He underwent a MRI of the brain as well as a routine EEG for further evaluation. Yesterday he spiked a temperature and underwent further evaluation for possibility of viral meningitis. Spinal fluid was completed just today and results indicated evidence for a viral or aseptic meningitis. His blood cultures also did come back positive for gram-positive cocci and he is currently on a combination of Rocephin and vancomycin. Infectious disease is following the patient as well. He is clinically doing much better today and has less headache symptoms and is more awake and alert. Would recommend cautious monitoring of his condition for the next 24 hours. He does seem to be moving in the right direction in terms of recovery from this episode of viral meningitis. We will await further recommendations from infectious disease in regards to his antibiotic coverage. Neurologically she remains very much intact with no focal deficit. His overall prognosis at this time remains guarded.
--- NOTE | 2018-08-06 22:42 | PN ---
PROGRESS NOTE DATE OF SERVICE: 08/06/2018 REASON FOR FOLLOWUP: 1. Aseptic meningitis. 2. Positive blood culture, likely contamination. INTERVAL HISTORY: The patient's fever has resolved. The patient is feeling slightly better. His headache is down to about 7 out of 10. Some nausea but no vomiting. Denies having any chest pain, shortness of breath or cough. No abdominal pain and no diarrhea. PHYSICAL EXAMINATION: Blood pressure is 132/70 with a pulse of 67, temperature 97.8. He is 97% on room air. General description is a middle-aged male lying in bed in no distress. HEENT EXAMINATION: No pallor or scleral icterus. Oral mucosa membrane is dry. LUNGS: Unlabored breathing. Clear to auscultation anteriorly. HEART: S1, S2. Regular rate and rhythm. ABDOMEN: Soft. No tenderness. EXTREMITIES: No edema of the feet. LABS: Hemoglobin is 12.9, white count 5.9 with a BUN of 11, creatinine 0.69. Blood culture reported gram-positive cocci, subsequently finalized as coagulase-negative staph. DIAGNOSTIC IMPRESSION AND PLAN: 1. Patient admitted to hospital after a syncopal episode. He did have a headache with a fever with a positive lumbar puncture leukocytosis, mildly elevated protein and normal glucose, likely aseptic meningitis, recommended to be treated symptomatically. 2. Positive blood culture which was initially reported as gram-positive cocci in chains; hence antibiotic was started. But subsequently it was finalized as coagulase-negative staph, and hence antibiotic has been discontinued. This is likely representing a contamination. The patient will be monitored closely off antibiotic therapy. Continue with supportive care. MMODL / IJN: [id number] /
[2018-08-07] MEDS: KETOROLAC 30 MG/ML 1 ML VIAL IVP PRN ×4 (05:03→23:26)
[2018-08-07] MEDS ORDERED: cefTRIAXone 2,000 MG in SODIUM CHLORIDE 0.9% 100 ML IVPB SCH (06:00)
[2018-08-07] MEDS: SODIUM CHLORIDE 0.9% 1,000 ML IV SCH ×7 (09:10→16:17)
--- NOTE | 2018-08-07 09:10 | P.PN ---
Subjective Progress Note Date: 08/07/18 This patient is a 28-year-old right-handed white male who was initially admitted to Hospital with symptoms of near syncope and collapse. Patient was subsequent admitted to hospital and underwent an extensive evaluation including MRI of the brain which failed to reveal any evidence of acute stroke or hemorrhage. There was a soft tissue swelling noted on the scalp. Patient subsequently developed high-grade fever and underwent a lumbar puncture for further evaluation of possible meningitis. Patient's spinal fluid results were consistent with a viral or aseptic meningitis. He was being treated symptomatically. His blood cultures subsequently were done and came back positive for gram-positive cocci. Patient was seen by infectious disease and is positive both cultures are now felt to be likely contamination. He was on antibiotic coverage and this has been discontinued this morning. Patient is resting comfortably and is afebrile this morning. He still has some slight headache symptoms. He underwent a EEG on admission and this was reviewed yesterday with him. The EEG fails to reveal any evidence of epileptic seizure focus. His recent syncopal episode is most likely vasovagal secondary to sepsis. The patient has responded to conservative management for treatment of his aseptic meningitis. We will continue to follow his progress closely during this admission. He has been made a full admission and will be transferred to the medical floor soon. His overall prognosis at this time remains guarded. Case was discussed at length with the patient and his was at bedside. All their questions were answered. Objective - Vital Signs Vital signs: Vital Signs Temp 97.7 F 08/07/18 08:15 Pulse 63 08/07/18 08:15 Resp 12 08/07/18 08:15 BP 128/69 08/07/18 08:15 Pulse Ox 97 08/07/18 08:15 Intake & Output 08/06/18 08/07/18 08/07/18 18:59 06:59 18:59 Intake Total 1220 Balance 1220 Weight 86.183 kg Intake: Oral 920 Other 300 Other: Voiding Method Toilet Toilet # Voids 1 2 - Exam Physical examination: PHYSICAL EXAMINATION: Patient is resting comfortably in bed. VITAL SIGNS: Blood pressure is [128/69]. Heart rate is [63]. Respiration is [12] . Temperature is [97.7]. HEENT: Head is atraumatic, neck is supple, there were no carotid bruits. CHEST: Lungs are clear to auscultation and percussion. CARDIAC: S1, S2 normal rate and rhythm. There is no murmur. ABDOMEN: Soft and nontender. Bowel sounds are present. EXTREMITIES: There is no pedal edema. Peripheral pulses are present. Neurological examination: Patient's neurological examination is nonfocal at this time. Patient appears to be much more relaxed and is in no acute distress. He does complain of mild headache this morning. He is alert and able to follow commands. His headache symptoms have improved from yesterday. He is afebrile at this time. - Labs CBC & Chem 7: 08/06/18 07:15 08/06/18 07:15 Labs: Microbiology - Last 24 Hours (Table) 08/05/18 22:51 Blood Culture - Preliminary Blood No Growth after 24 hours 08/05/18 22:51 Blood Culture Gram Stain - Preliminary Blood Blood Culture - Preliminary Coagulase Negative Staph Alpha Hemolytic Streptococcus 08/05/18 20:15 CSF Gram Stain - Preliminary Cerebral Spinal Fluid CSF Culture - Preliminary 08/05/18 22:51 Blood Culture - Final Blood Assessment and Plan (1) Vasovagal syncope Current Visit: Yes Status: Acute Code(s): R55 - SYNCOPE AND COLLAPSE SNOMED Code(s): 801967848 (2) Hx of cervical spine surgery Current Visit: Yes Status: Acute Code(s): Z98.890 - OTHER SPECIFIED POSTPROCEDURAL STATES SNOMED Code(s): 544871177 (3) Head injury Current Visit: Yes Status: Acute Code(s): S09.90XA - UNSPECIFIED INJURY OF HEAD, INITIAL ENCOUNTER SNOMED Code(s): 89322853 (4) Leukocytosis Current Visit: Yes Status: Acute Code(s): D72.829 - ELEVATED WHITE BLOOD CELL COUNT, UNSPECIFIED SNOMED Code(s): 037473709 Plan: This patient is a 28-year-old male who was admitted to hospital for evaluation of near syncope and collapse at home. He underwent a MRI of the brain as well as a routine EEG for further evaluation for further workup of possible syncope versus seizure. Shortly after admission he spiked a temperature and underwent further evaluation for possibility of viral meningitis. Lumbar puncture procedure was completed and results indicated aseptic meningitis. Spinal fluid was completed and results are consistent with and indicated evidence for a viral or aseptic meningitis. His blood cultures also did come back positive for gram-positive cocci and he is currently on a combination of Rocephin and vancomycin. Infectious disease is following the patient as well. It is felt his positive blood cultures are contamination by infectious disease and he was taken off of antibiotics last night. He is clinically doing much better today and has less headache symptoms and is more awake and alert. Would recommend cautious monitoring of his condition for the next 24 hours. He does seem to be moving in the right direction in terms of recovery from this episode of viral meningitis. He is awaiting transferred to a regular medical floor for ongoing monitoring and treatment. Neurologically he remains very much intact with no focal deficit. He may continue with symptomatic treatment of his headache with analgesics as needed. His overall prognosis at this time remains guarded. We will continue close neurological follow-up for the patient during this admission.
[2018-08-07] MEDS: ACETAMINOPHEN TAB 325 MG TAB PO PRN ×3 (09:11→21:11)
--- NOTE | 2018-08-07 18:13 | P.PN ---
Subjective 28-year-old male came in because of syncopal episode which appeared to be vasovagal event but patient also had fever neck pain headache and some photophobia because of which lumbar puncture was done lumbar CSF analysis is consistent with a septic meningitis probably enteroviral, patient on IV antibiotics and runny treatment at this time patient really using Toradol for pain. 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 Influenza testing is negative. Patient had leukocytosis which improved. Echocardiogram" EF 55-60% no aortic stenosis, it was done as a part of for syncope workup patient had an MRI which did not show any encephalitis. Patient is not on antibiotic at this time symptomatic supportive care for viral encephalitis. Patient had positive blood culture of left looks contaminated and no antibiotics has been recommended by infectious disease which is on the case. Patient is still complaining from significant pain with limitation of his movement. Objective - Vital Signs Vital signs: Vital Signs Temp 97.9 F 08/07/18 12:51 Pulse 58 L 08/07/18 12:51 Resp 16 08/07/18 12:51 BP 128/82 08/07/18 12:51 Pulse Ox 99 08/07/18 12:51 Intake & Output 08/06/18 08/07/18 08/07/18 18:59 06:59 18:59 Intake Total 1220 2910 Balance 1220 2910 Weight 86.183 kg 86.183 kg Intake: Intake, IV Titration 1750 Amount Sodium Chloride 0.9% 1, 1750 000 ml @ 125 mls/hr IV . Q8H [facility] Rx#:[id number] Oral 920 1160 Other 300 Other: Voiding Method Toilet Toilet Toilet # Voids 1 2 3 - Exam GENERAL: The patient is alert and oriented x3, not in any acute distress. Well developed, well nourished. appears bit lethargic HEENT: Pupils are round and equally reacting to light. EOMI. No scleral icterus. No conjunctival pallor. Normocephalic, atraumatic. No pharyngeal erythema. No thyromegaly. CARDIOVASCULAR: S1 and S2 present. No murmurs, rubs, or gallops. PULMONARY: Chest is clear to auscultation, no wheezing or crackles. ABDOMEN: Soft, nontender, nondistended, normoactive bowel sounds. No palpable organomegaly. MUSCULOSKELETAL: No joint swelling or deformity. EXTREMITIES: No cyanosis, clubbing, or pedal edema. -NEUROLOGICAL: Gross neurological examination did not reveal any focal deficits. mild photophobia but no phonophobia. Patient has neck stiffness with limitation of his neck movement SKIN: No rashes. - Labs CBC & Chem 7: 08/06/18 07:15 08/06/18 07:15 Labs: Microbiology - Last 24 Hours (Table) 08/06/18 15:05 Blood Culture - Preliminary Blood No Growth after 24 hours 08/05/18 22:51 Blood Culture - Preliminary Blood No Growth after 24 hours 08/05/18 22:51 Blood Culture Gram Stain - Preliminary Blood Blood Culture - Preliminary Coagulase Negative Staph Alpha Hemolytic Streptococcus 08/05/18 20:15 CSF Gram Stain - Preliminary Cerebral Spinal Fluid CSF Culture - Preliminary 08/05/18 22:51 Blood Culture - Final Blood Assessment and Plan Plan: Assessment and plan -Aseptic meningitis management as mentioned above -Neck pain, secondary to above, continue with pain management -syncopal episode appears to be secondary to acute viral illness or a vasovagal event patient will continued on IV fluids echocardiogram pending -back surgeries with fusion of L4 total 7 and neck surgery -nicotine abuse: Counseling was provided.
[2018-08-07] MEDS: NICOTINE 21MG/24HR PATCH TRANSDERM SCH (20:02)
[2018-08-08] MEDS: KETOROLAC 30 MG/ML 1 ML VIAL IVP PRN ×3 (05:30→17:20)
[2018-08-08] MEDS: SODIUM CHLORIDE 0.9% 1,000 ML IV SCH ×3 (05:32→14:23)
--- NOTE | 2018-08-08 08:09 | P.PN ---
Subjective 28-year-old male came in because of syncopal episode which appeared to be vasovagal event but patient also had fever neck pain headache and some photophobia because of which lumbar puncture was done lumbar CSF analysis is consistent with a septic meningitis probably enteroviral, patient on IV antibiotics and runny treatment at this time patient really using Toradol for pain. 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 Influenza testing is negative. Patient had leukocytosis which improved. Echocardiogram" EF 55-60% no aortic stenosis, it was done as a part of for syncope workup patient had an MRI which did not show any encephalitis. Patient is not on antibiotic at this time symptomatic supportive care for viral encephalitis. Patient had positive blood culture of left looks contaminated and no antibiotics has been recommended by infectious disease which is on the case. Patient is still complaining from significant pain with limitation of his movement. 08/08/2018 Patient is still complaining from occipital headache about 6-7/10 with neck pain 7/10. Also when he tries to move he still have some dizziness. No weakness or abnormal sensation no slurred speech. We going to increase his pain medication and asked for physical therapy evaluation. We Lowered fluid rate 75 ml per hour. Objective - Vital Signs Vital signs: Vital Signs Temp 97.6 F 08/07/18 21:30 Pulse 62 08/08/18 00:00 Resp 16 08/08/18 00:00 BP 130/68 08/07/18 21:30 Pulse Ox 97 08/07/18 21:30 Intake & Output 08/07/18 08/08/18 08/08/18 18:59 06:59 18:59 Intake Total 2910 1999 Balance 2910 1999 Weight 86.183 kg 86.183 kg Intake: Intake, IV Titration 1750 2000 Amount Sodium Chloride 0.9% 1, 1750 1999 000 ml @ 125 mls/hr IV . Q8H [facility] Rx#:[id number] Oral 1160 Other: Voiding Method Toilet Toilet # Voids 3 2 - Exam GENERAL: The patient is alert and oriented x3, not in any acute distress. Well developed, well nourished. appears bit lethargic HEENT: Pupils are round and equally reacting to light. EOMI. No scleral icterus. No conjunctival pallor. Normocephalic, atraumatic. No pharyngeal erythema. No thyromegaly. CARDIOVASCULAR: S1 and S2 present. No murmurs, rubs, or gallops. PULMONARY: Chest is clear to auscultation, no wheezing or crackles. ABDOMEN: Soft, nontender, nondistended, normoactive bowel sounds. No palpable organomegaly. MUSCULOSKELETAL: No joint swelling or deformity. EXTREMITIES: No cyanosis, clubbing, or pedal edema. -NEUROLOGICAL: Gross neurological examination did not reveal any focal deficits. mild photophobia but no phonophobia. Patient has neck stiffness with limitation of his neck movement SKIN: No rashes. - Labs CBC & Chem 7: 08/06/18 07:15 08/06/18 07:15 Labs: Microbiology - Last 24 Hours (Table) 08/05/18 22:51 Blood Culture - Preliminary Blood No Growth after 48 hours 08/05/18 22:51 Blood Culture Gram Stain - Final Blood Blood Culture - Final Coagulase Negative Staph Alpha Hemolytic Streptococcus 08/05/18 20:15 CSF Gram Stain - Preliminary Cerebral Spinal Fluid CSF Culture - Preliminary 08/06/18 15:05 Blood Culture - Preliminary Blood No Growth after 24 hours Assessment and Plan Plan: Assessment and plan -Aseptic meningitis management as mentioned above -Neck pain, secondary to above, continue with pain management -syncopal episode appears to be secondary to acute viral illness or a vasovagal event patient will continued on IV fluids echocardiogram pending -back surgeries with fusion of L4 total 7 and neck surgery -nicotine abuse: Counseling was provided.
[2018-08-08 08:28] LABS: Basophils % (A) 0 %; Eosinophils # (A) 0.1 k/uL (0-0.7); Eosinophils % (A) 2 %; HCT 38.6 % (39.0-53.0); HGB 12.7 gm/dL (13.0-17.5); Lymphocytes # (A) 1.4 k/uL (1.0-4.8); Lymphocytes % (A) 21 %; MCH 31.6 pg (25.0-35.0); MCV 95.8 fL (80.0-100.0); Mean Platelet Volume 8.1; Monocytes # (A) 0.4 k/uL (0-1.0); Monocytes % (A) 6 %; Neutrophils # (A) 4.6 k/uL (1.3-7.7); Neutrophils % (A) 69 %; Platelet Count 173 k/uL (150-450); RBC 4.03 m/uL (4.30-5.90); RDW 12.9 % (11.5-15.5); WBC 6.6 k/uL (3.8-10.6)
[2018-08-08] MEDS: NICOTINE 21MG/24HR PATCH TRANSDERM SCH (08:29)
[2018-08-08] MEDS: traMADol-ACETAMINOP 37.5-325MG 1 EACH TAB PO PRN ×3 (08:29→20:44)
[2018-08-08 08:30] LABS: Anion Gap 6 mmol/L; Blood Urea Nitrogen 15 mg/dL (9-20); Calcium 8.7 mg/dL (8.4-10.2); Carbon Dioxide 24 mmol/L (22-30); Chloride 112 mmol/L (98-107); Glucose 84 mg/dL (74-99); Potassium 4.4 mmol/L (3.5-5.1); Sodium 142 mmol/L (137-145)
--- NOTE | 2018-08-08 16:16 | P.PN ---
Subjective Progress Note Date: 08/08/18 This patient is a 28-year-old right-handed white male who was initially admitted to Hospital with symptoms of near syncope and collapse. Patient was subsequent admitted to hospital and underwent an extensive evaluation including MRI of the brain which failed to reveal any evidence of acute stroke or hemorrhage. There was a soft tissue swelling noted on the scalp. Patient subsequently developed high-grade fever and underwent a lumbar puncture for further evaluation of possible meningitis. Patient's spinal fluid results were consistent with a viral or aseptic meningitis. He was being treated symptomatically. His blood cultures subsequently were done and came back positive for gram-positive cocci. Patient was seen by infectious disease and is positive both cultures are now felt to be likely contamination. He was on antibiotic coverage and this has been discontinued this morning. Patient is resting comfortably and is afebrile this morning. He still has some slight headache symptoms. He underwent a EEG on admission and this was reviewed yesterday with him. The EEG fails to reveal any evidence of epileptic seizure focus. His recent syncopal episode is most likely vasovagal secondary to sepsis. The patient has responded to conservative management for treatment of his aseptic meningitis. We will continue to follow his progress closely during this admission. He has been made a full admission and will be transferred to the medical floor soon. This patient is doing somewhat better today on the medical floor. He did have some discomfort earlier than the morning but this is slowly improving. His headache and neck pain symptoms also improving. Given the finding of acute aseptic meningitis this may take up to a week or more for him to feel back to baseline regarding his overall condition. His overall prognosis at this time remains guarded. Case was discussed with the patient today at bedside. All of his questions were answered. He is making slow improvement overall and we will continue close neurological follow-up for him. Objective - Vital Signs Vital signs: Vital Signs Temp 98.5 F 08/08/18 05:00 Pulse 67 08/08/18 05:00 Resp 16 08/08/18 05:00 BP 121/81 08/08/18 05:00 Pulse Ox 97 08/08/18 05:00 Intake & Output 08/07/18 08/08/18 08/08/18 18:59 06:59 18:59 Intake Total 2910 1999 Balance 2910 1999 Weight 86.183 kg 86.183 kg Intake: Intake, IV Titration 1750 2000 Amount Sodium Chloride 0.9% 0 1999 000 ml @ 125 mls/hr IV . Q8H [facility] Rx#:[id number] Oral 1160 Other: Voiding Method Toilet Toilet # Voids 3 2 - Exam Physical examination: PHYSICAL EXAMINATION: Patient is resting comfortably in bed. VITAL SIGNS: Blood pressure is [121/81]. Heart rate is [67]. Respiration is [16] . Temperature is [98.5]. HEENT: Head is atraumatic, neck is supple, there were no carotid bruits. CHEST: Lungs are clear to auscultation and percussion. CARDIAC: S1, S2 normal rate and rhythm. There is no murmur. ABDOMEN: Soft and nontender. Bowel sounds are present. EXTREMITIES: There is no pedal edema. Peripheral pulses are present. Neurological examination: Patient's neurological examination is nonfocal at this time. Patient appears to be much more relaxed and is in no acute distress. He does complain of mild headache this morning. He is alert and able to follow commands. His headache symptoms have improved from yesterday. He is afebrile at this time. - Labs CBC & Chem 7: 08/08/18 07:05 08/08/18 07:05 Labs: Abnormal Lab Results - Last 24 Hours (Table) 08/08/18 08/08/18 Range/Units 07:05 07:05 RBC 4.03 L (4.30-5.90) m/uL Hgb 12.7 L (13.0-17.5) gm/dL Hct 38.6 L (39.0-53.0) % Chloride 112 H (98-107) mmol/L Microbiology - Last 24 Hours (Table) 08/05/18 22:51 Blood Culture - Preliminary Blood No Growth after 48 hours 08/05/18 22:51 Blood Culture Gram Stain - Final Blood Blood Culture - Final Coagulase Negative Staph Alpha Hemolytic Streptococcus 08/05/18 20:15 CSF Gram Stain - Preliminary Cerebral Spinal Fluid CSF Culture - Preliminary 08/06/18 15:05 Blood Culture - Preliminary Blood No Growth after 24 hours Assessment and Plan (1) Vasovagal syncope Current Visit: Yes Status: Acute Code(s): R55 - SYNCOPE AND COLLAPSE SNOMED Code(s): 126801185 (2) Hx of cervical spine surgery Current Visit: Yes Status: Acute Code(s): Z98.890 - OTHER SPECIFIED POSTPROCEDURAL STATES SNOMED Code(s): 554205448 (3) Head injury Current Visit: Yes Status: Acute Code(s): S09.90XA - UNSPECIFIED INJURY OF HEAD, INITIAL ENCOUNTER SNOMED Code(s): 80318530 (4) Leukocytosis Current Visit: Yes Status: Acute Code(s): D72.829 - ELEVATED WHITE BLOOD CELL COUNT, UNSPECIFIED SNOMED Code(s): 729455398 Plan: This patient is a 28-year-old male who was admitted to hospital for evaluation of near syncope and collapse at home. He underwent a MRI of the brain as well as a routine EEG for further evaluation for further workup of possible syncope versus seizure. Shortly after admission he spiked a temperature and underwent further evaluation for possibility of viral meningitis. Lumbar puncture procedure was completed and results indicated aseptic meningitis. Spinal fluid was completed and results are consistent with and indicated evidence for a viral or aseptic meningitis. His blood cultures also did come back positive for gram-positive cocci and he is currently on a combination of Rocephin and vancomycin. Infectious disease is following the patient as well. It is felt his positive blood cultures are contamination by infectious disease and he was taken off of antibiotics last night. He is clinically doing much better today and has less headache symptoms and is more awake and alert. Would recommend cautious monitoring of his condition for the next 24 hours. He does seem to be moving in the right direction in terms of recovery from this episode of viral meningitis. The patient is now transferred to a regular medical floor and is making slow progress. He did has some earlier discomfort in the neck and slight increase headache symptoms but it is improving with time. We have explained that the overall healing process and recovery from aseptic meningitis may take up to a week or more. We will continue to follow him closely and he remains off of all antibiotic treatment at this time. He may continue with symptomatic treatment of his headache with analgesics as needed. His overall prognosis at this time remains guarded. We will continue close neurological follow-up for the patient during this admission.
[2018-08-08] MEDS: ACETAMINOPHEN TAB 325 MG TAB PO PRN (20:43)
[2018-08-09] MEDS: KETOROLAC 30 MG/ML 1 ML VIAL IVP PRN ×3 (01:45→18:19)
[2018-08-09] MEDS: NICOTINE 21MG/24HR PATCH TRANSDERM SCH (07:59)
[2018-08-09] MEDS: traMADol-ACETAMINOP 37.5-325MG 1 EACH TAB PO PRN ×3 (08:05→21:10)
[2018-08-09] MEDS: ACETAMINOPHEN TAB 325 MG TAB PO PRN ×2 (10:06→17:12)
[2018-08-09] MEDS: SODIUM CHLORIDE 0.9% 1,000 ML IV SCH (12:23)
--- NOTE | 2018-08-09 19:31 | P.PN ---
Subjective This patient is a 28-year-old right-handed white male who was initially admitted to Hospital with symptoms of near syncope and collapse. Patient was subsequent admitted to hospital and underwent an extensive evaluation including MRI of the brain which failed to reveal any evidence of acute stroke or hemorrhage. There was a soft tissue swelling noted on the scalp. Patient subsequently developed high-grade fever and underwent a lumbar puncture for further evaluation of possible meningitis. Patient's spinal fluid results were consistent with a viral or aseptic meningitis. He was being treated symptomatically. His blood cultures subsequently were done and came back positive for gram-positive cocci. Patient was seen by infectious disease and is positive both cultures are now felt to be likely contamination. He was on antibiotic coverage and this has been discontinued this morning. Patient is resting comfortably and is afebrile this morning. He still has some slight headache symptoms. He underwent a EEG on admission and this was reviewed yesterday with him. The EEG fails to reveal any evidence of epileptic seizure focus. His recent syncopal episode is most likely vasovagal secondary to sepsis. The patient has responded to conservative management for treatment of his aseptic meningitis. We will continue to follow his progress closely during this admission. He has been made a full admission and will be transferred to the medical floor soon. This patient is doing somewhat better today on the medical floor. He did have some discomfort earlier than the morning but this is slowly improving. His headache and neck pain symptoms also improving. Patient has been using toward all intermittently for recurrent headache pain. This seems to be mostly muscle tension and possibly related to his cervical disc disease in the neck. He has used toward all 2-3 times in a day. Given the finding of acute aseptic meningitis this may take up to a week or more for him to feel back to baseline regarding his overall condition. The patient remains afebrile. We will continue to monitor his cultures as well as his temperature closely. His overall prognosis at this time remains guarded. Case was discussed with the patient today at bedside. All of his questions were answered. He is making slow improvement overall and we will continue close neurological follow-up for him. Objective - Vital Signs Vital signs: Vital Signs Temp 98.3 F 08/09/18 12:00 Pulse 63 08/09/18 12:00 Resp 20 08/09/18 16:00 BP 127/72 08/09/18 12:00 Pulse Ox 96 08/09/18 12:00 Intake & Output 08/08/18 08/09/18 08/09/18 18:59 06:59 18:59 Intake Total 2049 790 Balance 2049 790 Weight 86.183 kg Intake: Intake, IV Titration 900 Amount Sodium Chloride 0.9% 1, 900 000 ml @ 75 mls/hr IV . [id number] [facility] Rx#:[id number] Oral 1150 790 Other: Voiding Method Toilet Toilet Toilet # Voids 4 1 - Exam Physical examination: PHYSICAL EXAMINATION: Patient is resting comfortably in bed. VITAL SIGNS: Blood pressure is [127/72]. Heart rate is [63]. Respiration is [20] . Temperature is [98.3]. HEENT: Head is atraumatic, neck is supple, there were no carotid bruits. CHEST: Lungs are clear to auscultation and percussion. CARDIAC: S1, S2 normal rate and rhythm. There is no murmur. ABDOMEN: Soft and nontender. Bowel sounds are present. EXTREMITIES: There is no pedal edema. Peripheral pulses are present. Neurological examination: Patient's neurological examination is nonfocal at this time. Patient appears to be much more relaxed and is in no acute distress. He does complain of mild headache this morning. He is alert and able to follow commands. His headache symptoms have improved from yesterday. He is afebrile at this time. - Labs CBC & Chem 7: 08/08/18 07:05 08/08/18 07:05 Labs: Microbiology - Last 24 Hours (Table) 08/06/18 15:05 Blood Culture - Preliminary Blood No Growth after 72 hours 08/05/18 22:51 Blood Culture - Preliminary Blood No Growth after 72 hours 08/05/18 20:15 CSF Gram Stain - Preliminary Cerebral Spinal Fluid CSF Culture - Preliminary Assessment and Plan (1) Vasovagal syncope Current Visit: Yes Status: Acute Code(s): R55 - SYNCOPE AND COLLAPSE SNOMED Code(s): 757244209 (2) Hx of cervical spine surgery Current Visit: Yes Status: Acute Code(s): Z98.890 - OTHER SPECIFIED POSTPROCEDURAL STATES SNOMED Code(s): 990642170 (3) Head injury Current Visit: Yes Status: Acute Code(s): S09.90XA - UNSPECIFIED INJURY OF HEAD, INITIAL ENCOUNTER SNOMED Code(s): 85002067 (4) Leukocytosis Current Visit: Yes Status: Acute Code(s): D72.829 - ELEVATED WHITE BLOOD CELL COUNT, UNSPECIFIED SNOMED Code(s): 720523133 Plan: This patient is a 28-year-old male who was admitted to hospital for evaluation of near syncope and collapse at home. He underwent a MRI of the brain as well as a routine EEG for further evaluation for further workup of possible syncope versus seizure. Shortly after admission he spiked a temperature and underwent further evaluation for possibility of viral meningitis. Lumbar puncture procedure was completed and results indicated aseptic meningitis. Spinal fluid was completed and results are consistent with and indicated evidence for a viral or aseptic meningitis. His blood cultures also did come back positive for gram-positive cocci and he is currently on a combination of Rocephin and vancomycin. Infectious disease is following the patient as well. It is felt his positive blood cultures are contamination by infectious disease and he was taken off of antibiotics last night. He is clinically doing much better today and has less headache symptoms and is more awake and alert. Would recommend cautious monitoring of his condition for the next 24 hours. He does seem to be moving in the right direction in terms of recovery from this episode of viral meningitis. The patient is now transferred to a regular medical floor and is making slow progress. He did has some earlier discomfort in the neck and slight increase headache symptoms but it is improving with time. Patient is requiring toward all intermittently for some of the headache pain. Clinically he is improving daily. We have explained that the overall healing process and recovery from aseptic meningitis may take up to a week or more. We will continue to follow him closely and he remains off of all antibiotic treatment at this time. He may continue with symptomatic treatment of his headache with analgesics as needed. His overall prognosis at this time remains guarded. We will continue close neurological follow-up for the patient during this admission.
--- NOTE | 2018-08-09 23:55 | PN ---
PROGRESS NOTE DATE OF SERVICE: 08/09/2018. REASON FOR FOLLOW UP: Aseptic meningitis, positive blood culture likely contamination. INTERVAL HISTORY: The patient has been afebrile with no fever recorded in the last 72 hours. The patient's headache has improved. Complaining of some neck pain, though no nausea or vomiting. No abdominal pain, no diarrhea. PHYSICAL EXAMINATION: Blood pressure 135/67, pulse of 57, temperature 97.6, he is 95% on room air. GENERAL DESCRIPTION: A middle-aged male lying in bed in no distress. RESPIRATORY SYSTEM: Unlabored breathing. Clear to auscultation anteriorly. HEART: S1, S2. Regular rate and rhythm. EXTREMITIES: No edema. LABS: Hemoglobin is 12.6 with a BUN of 15, creatinine 0.76. Blood culture repeat has been negative. Culture has been negative. DIAGNOSTIC IMPRESSION AND PLAN: 1. Patient admitted to the hospital with fever, headache, likely aseptic meningitis and patient with CSF finding with slightly elevated protein and white count. Glucose normal 6. CSF culture negative. Continue with symptomatic treatment. 2. Positive blood culture, likely contamination. Repeat blood culture has been negative. The patient is currently improving while off antibiotic therapy with no recurrence of any fever. We will continue to monitor the patient closely off antibiotic. Continue supportive care. MMODL / IJN: [id number] /
[2018-08-10] MEDS: KETOROLAC 30 MG/ML 1 ML VIAL IVP PRN ×2 (00:25→07:26)
[2018-08-10] MEDS: SODIUM CHLORIDE 0.9% 1,000 ML IV SCH ×2 (00:28→13:12)
[2018-08-10] MEDS: NICOTINE 21MG/24HR PATCH TRANSDERM SCH (07:30)
[2018-08-10] MEDS: ACETAMINOPHEN TAB 325 MG TAB PO PRN ×3 (09:53→23:12)
[2018-08-10] MEDS: traMADol-ACETAMINOP 37.5-325MG 1 EACH TAB PO PRN ×3 (09:54→23:10)
--- NOTE | 2018-08-10 17:58 | P.PN ---
Subjective Progress Note Date: 08/10/18 This patient is a 28-year-old right-handed white male who was initially admitted to Hospital with symptoms of near syncope and collapse. Patient was subsequent admitted to hospital and underwent an extensive evaluation including MRI of the brain which failed to reveal any evidence of acute stroke or hemorrhage. There was a soft tissue swelling noted on the scalp. Patient subsequently developed high-grade fever and underwent a lumbar puncture for further evaluation of possible meningitis. Patient's spinal fluid results were consistent with a viral or aseptic meningitis. He was being treated symptomatically. His blood cultures subsequently were done and came back positive for gram-positive cocci. Patient was seen by infectious disease and is positive both cultures are now felt to be likely contamination. He was on antibiotic coverage and this has been discontinued this morning. Patient is resting comfortably and is afebrile this morning. He still has some slight headache symptoms. He underwent a EEG on admission and this was reviewed yesterday with him. The EEG fails to reveal any evidence of epileptic seizure focus. His recent syncopal episode is most likely vasovagal secondary to sepsis. The patient has responded to conservative management for treatment of his aseptic meningitis. We will continue to follow his progress closely during this admission. He has been made a full admission and will be transferred to the medical floor soon. This patient is doing somewhat better today on the medical floor. He did have some discomfort earlier than the morning but this is slowly improving. His headache and neck pain symptoms also improving. Patient has been using toward all intermittently for recurrent headache pain. This seems to be mostly muscle tension and possibly related to his cervical disc disease in the neck. He has used Toradal 2-3 times in a day. Given the finding of acute aseptic meningitis this may take up to a week or more for him to feel back to baseline regarding his overall condition. The patient remains afebrile. The patient noted slight discomfort in his neck today as compared to yesterday. He does have history of having surgical procedure with a cage device in his neck from previous injury. This may be also contributing to some of his neck discomfort. He does remain afebrile today. We will continue to monitor his cultures as well as his temperature closely. We will await further recommendations from infectious disease. His overall prognosis at this time remains guarded. Case was discussed with the patient today at bedside. All of his questions were answered. He is making slow improvement overall and we will continue close neurological follow-up for him. Objective - Vital Signs Vital signs: Vital Signs Temp 98.3 F 08/10/18 12:32 Pulse 68 08/10/18 12:32 Resp 15 08/10/18 12:32 BP 125/81 08/10/18 12:32 Pulse Ox 97 08/10/18 12:32 Intake & Output 08/09/18 08/10/18 08/10/18 18:59 06:59 18:59 Intake Total 1190 Balance 1190 Intake: Intake, IV Titration 600 Amount Sodium Chloride 0.9% 1, 600 000 ml @ 75 mls/hr IV . [id number] [facility] Rx#:[id number] Oral 590 Other: Voiding Method Toilet Toilet # Voids 2 2 - Exam Physical examination: PHYSICAL EXAMINATION: Patient is resting comfortably in bed. VITAL SIGNS: Blood pressure is [125/81]. Heart rate is [68]. Respiration is [15] . Temperature is [98.3]. HEENT: Head is atraumatic, neck is supple, there were no carotid bruits. CHEST: Lungs are clear to auscultation and percussion. CARDIAC: S1, S2 normal rate and rhythm. There is no murmur. ABDOMEN: Soft and nontender. Bowel sounds are present. EXTREMITIES: There is no pedal edema. Peripheral pulses are present. Neurological examination: Patient's neurological examination is nonfocal at this time. Patient appears to be much more relaxed and is in no acute distress. He does complain of mild headache this morning. He is alert and able to follow commands. His headache symptoms have improved from yesterday. He is afebrile at this time. - Labs CBC & Chem 7: 08/08/18 07:05 08/08/18 07:05 Labs: Microbiology - Last 24 Hours (Table) 08/05/18 22:51 Blood Culture - Preliminary Blood No Growth after 96 hours 08/05/18 20:15 CSF Gram Stain - Final Cerebral Spinal Fluid CSF Culture - Final 08/06/18 15:05 Blood Culture - Preliminary Blood No Growth after 72 hours Assessment and Plan (1) Vasovagal syncope Current Visit: Yes Status: Acute Code(s): R55 - SYNCOPE AND COLLAPSE SNOMED Code(s): 196991118 (2) Hx of cervical spine surgery Current Visit: Yes Status: Acute Code(s): Z98.890 - OTHER SPECIFIED POSTPROCEDURAL STATES SNOMED Code(s): 747956588 (3) Head injury Current Visit: Yes Status: Acute Code(s): S09.90XA - UNSPECIFIED INJURY OF HEAD, INITIAL ENCOUNTER SNOMED Code(s): 24210937 (4) Leukocytosis Current Visit: Yes Status: Acute Code(s): D72.829 - ELEVATED WHITE BLOOD CELL COUNT, UNSPECIFIED SNOMED Code(s): 616951663 Plan: This patient is a 28-year-old male who was admitted to hospital for evaluation of near syncope and collapse at home. He underwent a MRI of the brain as well as a routine EEG for further evaluation for further workup of possible syncope versus seizure. Shortly after admission he spiked a temperature and underwent further evaluation for possibility of viral meningitis. Lumbar puncture procedure was completed and results indicated aseptic meningitis. Spinal fluid was completed and results are consistent with and indicated evidence for a viral or aseptic meningitis. His blood cultures also did come back positive for gram-positive cocci and he is currently on a combination of Rocephin and vancomycin. Infectious disease is following the patient as well. It is felt his positive blood cultures are contamination by infectious disease and he was taken off of antibiotics last night. He is clinically doing much better today and has less headache symptoms and is more awake and alert. Would recommend cautious monitoring of his condition for the next 24 hours. He does seem to be moving in the right direction in terms of recovery from this episode of viral meningitis. The patient is now transferred to a regular medical floor and is making slow progress. He did has some earlier discomfort in the neck and slight increase headache symptoms but it is improving with time. Patient is requiring Toradol intermittently for some of the headache pain. This has been helpful in relieving much of his neck discomfort. Clinically he is improving daily. We have explained that the overall healing process and recovery from aseptic meningitis may take up to a week or more. We will continue to follow him closely and he remains off of all antibiotic treatment at this time. He may continue with symptomatic treatment of his headache with analgesics as needed. He remains afebrile today. We will await further recommendations from infectious disease. His overall prognosis at this time remains guarded. We will continue close neurological follow-up for the patient during this admission.
[2018-08-10] MEDS: IBUPROFEN 400 MG TAB PO PRN (20:21)
[2018-08-10 21:45] VITALS: RESP 16
--- NOTE | 2018-08-11 00:02 | PN ---
PROGRESS NOTE DATE OF SERVICE: 08/10/2018 REASON FOR FOLLOWUP: 1. Aseptic meningitis. 2. Positive blood cultures . INTERVAL HISTORY: The patient is afebrile has been breathing comfortably. Patient headache has improved. Has been complaining of some low neck pain. No nausea, no vomiting. No abdominal pain. No diarrhea. PHYSICAL EXAMINATION: Blood pressure is 143/87, pulse of 61, temperature 99.7. He is 97% on room air. General description is a middle-aged male lying in bed in no distress. Respiratory system: Unlabored breathing. Clear to auscultation anteriorly. Heart S1, S2. Regular rate and rhythm. Abdomen soft, no tenderness. LABS: Hemoglobin is 12.3, white count 6.6, BUN of 15, creatinine 0.76. DIAGNOSTIC IMPRESSION AND PLAN: 1. Patient admitted to the hospital with fever and headache, likely aseptic meningitis seemed to be responding to the symptomatic treatment. No need for any antiviral or antibiotics. 2. The patient with a positive blood culture, likely skin contamination. Repeat blood culture has been negative. MMODL / IJN: [id number] /
--- NOTE | 2018-08-11 00:41 | P.PN ---
Subjective Progress Note Date: 09/09/18 Principal diagnosis: Headache and neck pain Aseptic meningitis 28-year-old male came in because of syncopal episode which appeared to be vasovagal event but patient also had fever neck pain headache and some photophobia because of which lumbar puncture was done lumbar CSF analysis is consistent with a septic meningitis probably enteroviral, patient on IV antibiotics and runny treatment at this time patient really using Toradol for pain. 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 Influenza testing is negative. Patient had leukocytosis which improved. Echocardiogram" EF 55-60% no aortic stenosis, it was done as a part of for syncope workup patient had an MRI which did not show any encephalitis. Patient is not on antibiotic at this time symptomatic supportive care for viral encephalitis. Patient had positive blood culture of left looks contaminated and no antibiotics has been recommended by infectious disease which is on the case. Patient is still complaining from significant pain with limitation of his movement. 08/08/2018 Patient is still complaining from occipital headache about 6-7/10 with neck pain 7/10. Also when he tries to move he still have some dizziness. No weakness or abnormal sensation no slurred speech. We going to increase his pain medication and asked for physical therapy evaluation. We Lowered fluid rate 75 ml per hour. 08/09/2018 Patient is still complaining of neck pain. No fever no chills. Dizziness is improving. Otherwise patient is off antibiotics as per ID recommendations. Continued on pain management. No fever no chills. No acute overnight issues. Current medications reviewed Objective - Vital Signs Vital signs: Vital Signs Temp 97.9 F 08/10/18 21:15 Pulse 61 08/10/18 21:15 Resp 16 08/10/18 21:15 BP 143/87 08/10/18 21:15 Pulse Ox 97 08/10/18 21:15 Intake & Output 08/10/18 08/10/18 08/11/18 06:59 18:59 06:59 Intake Total 1190 600 200 Balance 1190 600 200 Intake: Intake, IV Titration 600 600 200 Amount Sodium Chloride 0.9% 1, 600 600 200 000 ml @ 75 mls/hr IV . [id number] [facility] Rx#:[id number] Oral 590 Other: Voiding Method Toilet Toilet # Voids 2 - Exam GENERAL: The patient is alert and oriented x3, not in any acute distress. Well developed, well nourished. appears bit lethargic HEENT: Pupils are round and equally reacting to light. EOMI. No scleral icterus. No conjunctival pallor. Normocephalic, atraumatic. No pharyngeal erythema. No thyromegaly. CARDIOVASCULAR: S1 and S2 present. No murmurs, rubs, or gallops. PULMONARY: Chest is clear to auscultation, no wheezing or crackles. ABDOMEN: Soft, nontender, nondistended, normoactive bowel sounds. No palpable organomegaly. MUSCULOSKELETAL: No joint swelling or deformity. EXTREMITIES: No cyanosis, clubbing, or pedal edema. -NEUROLOGICAL: Gross neurological examination did not reveal any focal deficits. mild photophobia but no phonophobia. Patient has neck stiffness with limitation of his neck movement SKIN: No rashes. - Labs CBC & Chem 7: 08/08/18 07:05 08/08/18 07:05 Labs: Microbiology - Last 24 Hours (Table) 08/06/18 15:05 Blood Culture - Preliminary Blood No Growth after 96 hours 08/05/18 22:51 Blood Culture - Preliminary Blood No Growth after 96 hours Assessment and Plan Assessment: Assessment and plan -Aseptic meningitis management as mentioned above -Neck pain, secondary to above, continue with pain management -syncopal episode appears to be secondary to acute viral illness or a vasovagal event patient will continued on IV fluids echocardiogram pending -back surgeries with fusion of L4 total 7 and neck surgery -nicotine abuse: Counseling was provided. Time with Patient: Greater than 30
--- NOTE | 2018-08-11 00:44 | P.PN ---
Subjective Progress Note Date: 08/10/18 Principal diagnosis: Headache and neck pain Aseptic meningitis 28-year-old male came in because of syncopal episode which appeared to be vasovagal event but patient also had fever neck pain headache and some photophobia because of which lumbar puncture was done lumbar CSF analysis is consistent with a septic meningitis probably enteroviral, patient on IV antibiotics and runny treatment at this time patient really using Toradol for pain. 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 Influenza testing is negative. Patient had leukocytosis which improved. Echocardiogram" EF 55-60% no aortic stenosis, it was done as a part of for syncope workup patient had an MRI which did not show any encephalitis. Patient is not on antibiotic at this time symptomatic supportive care for viral encephalitis. Patient had positive blood culture of left looks contaminated and no antibiotics has been recommended by infectious disease which is on the case. Patient is still complaining from significant pain with limitation of his movement. 08/08/2018 Patient is still complaining from occipital headache about 6-7/10 with neck pain 7/10. Also when he tries to move he still have some dizziness. No weakness or abnormal sensation no slurred speech. We going to increase his pain medication and asked for physical therapy evaluation. We Lowered fluid rate 75 ml per hour. 08/09/2018 Patient is still complaining of neck pain. No fever no chills. Dizziness is improving. Otherwise patient is off antibiotics as per ID recommendations. Continued on pain management. No fever no chills. No acute overnight issues. 08/10/2018 Patient is still complaining of neck stiffness. Otherwise dizziness is much improved. IV fluids have been discontinued and an increase oral intake. Blood pressure is stable. No fever. Patient is off antibiotics. ID and neurology is following. Anticipate discharge tomorrow with more clinical improvement. Current medications reviewed Objective - Vital Signs Vital signs: Vital Signs Temp 97.9 F 08/10/18 21:15 Pulse 61 08/10/18 21:15 Resp 16 08/10/18 21:15 BP 143/87 08/10/18 21:15 Pulse Ox 97 08/10/18 21:15 Intake & Output 08/10/18 08/10/18 08/11/18 06:59 18:59 06:59 Intake Total 1190 600 200 Balance 1190 600 200 Intake: Intake, IV Titration 600 600 200 Amount Sodium Chloride 0.9% 1, 600 600 200 000 ml @ 75 mls/hr IV . [id number] [facility] Rx#:[id number] Oral 590 Other: Voiding Method Toilet Toilet # Voids 2 - Exam GENERAL: The patient is alert and oriented x3, not in any acute distress. Well developed, well nourished. appears bit lethargic HEENT: Pupils are round and equally reacting to light. EOMI. No scleral icterus. No conjunctival pallor. Normocephalic, atraumatic. No pharyngeal erythema. No thyromegaly. CARDIOVASCULAR: S1 and S2 present. No murmurs, rubs, or gallops. PULMONARY: Chest is clear to auscultation, no wheezing or crackles. ABDOMEN: Soft, nontender, nondistended, normoactive bowel sounds. No palpable organomegaly. MUSCULOSKELETAL: No joint swelling or deformity. EXTREMITIES: No cyanosis, clubbing, or pedal edema. -NEUROLOGICAL: Gross neurological examination did not reveal any focal deficits. no phonophobia. Patient has neck stiffness with limitation of his neck movement SKIN: No rashes. - Labs CBC & Chem 7: 08/08/18 07:05 08/08/18 07:05 Labs: Microbiology - Last 24 Hours (Table) 08/06/18 15:05 Blood Culture - Preliminary Blood No Growth after 96 hours 08/05/18 22:51 Blood Culture - Preliminary Blood No Growth after 96 hours Assessment and Plan Assessment: Assessment and plan -Aseptic meningitis management as mentioned above -Neck pain, secondary to above, continue with pain management -syncopal episode appears to be secondary to acute viral illness or a vasovagal event patient will continued on IV fluids echocardiogram pending -back surgeries with fusion of L4 total 7 and neck surgery -nicotine abuse: Counseling was provided.
[2018-08-11] MEDS: IBUPROFEN 400 MG TAB PO PRN ×2 (08:07→15:20)
[2018-08-11] MEDS: NICOTINE 21MG/24HR PATCH TRANSDERM SCH (08:07)
[2018-08-11] MEDS: traMADol-ACETAMINOP 37.5-325MG 1 EACH TAB PO PRN ×2 (10:49→17:45)
[2018-08-11 12:48] VITALS: BP 130/71; TEMP 98.6
[2018-08-11] MEDS: ACETAMINOPHEN TAB 325 MG TAB PO PRN (13:42)
--- NOTE | 2018-08-11 15:27 | PN ---
PROGRESS NOTE DATE OF SERVICE: 08/11/2018 REASON FOR FOLLOW UP: 1. Aseptic meningitis. 2. Positive blood culture, likely contamination. INTERVAL HISTORY: The patient is currently afebrile. He has no fever since 08/05. Patient's headache has resolved. Neck pain is improving, too. Denies having any chest pain, shortness of breath, no cough. No abdominal pain, no diarrhea. PHYSICAL EXAMINATION: Blood pressure 130/71 with a pulse of 62, temp 98.6, he is 97% on room air. General description is a middle-aged male, lying in bed in no distress. RESPIRATORY SYSTEM: Unlabored breathing, clear to auscultation anteriorly. HEART: S1, S2. Regular rate and rhythm. ABDOMEN: Soft, no tenderness. LABS: Hemoglobin is 12.7, white count 6.6 with a creatinine 0.76. Blood culture repeat 08/06 has been negative. DIAGNOSTIC IMPRESSION AND PLAN: 1. Patient with fever and headache, likely aseptic meningitis. Patient responded to the medical treatment. No need for antiviral or antibiotics. 2. Positive blood pressure culture, likely contamination. Repeat blood culture has been negative. No need for further workup for the same. MMODL / IJN: [id number] /
[2018-08-11 16:38] VITALS: PULSE 70
--- NOTE | 2018-08-11 17:21 | P.DS ---
Providers Date of admission: 08/06/18 09:01 Attending physician: Vini Coughlin MD Consults: 08/04/18 16:56 Consult Physician Stat Consulting Provider: Feroz Grimaldo Consult Reason/Comments: syncope, possible seizure Do you want consulting provider notified?: Yes 08/05/18 08:52 Consult Physician Routine Consulting Provider: Alisson Huitron Consult Reason/Comments: syncope, palpitations Do you want consulting provider notified?: Already Contacted 08/05/18 13:40 Consult Physician Routine Consulting Provider: Marcelle Anderson Consult Reason/Comments: Possible viral meningitis Do you want consulting provider notified?: Yes 08/05/18 13:48 Consult Physician Routine Consulting Provider: Woody Boateng Consult Reason/Comments: lumbar puncture, R/O viral meninigitis Do you want consulting provider notified?: Yes Primary care physician: [facility] Course: 1-year-old male came in because of syncopal episode which is mostly to be vasovagal event but patient also had fever and neck pain headache and some photophobia because of which lumbar puncture was done lumbar CSF analysis is consistent with aseptic meningitis probably enteroviral, patient on IV antibiotics and runny treatment at this time patient really using Toradol for pain. 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 Influenza testing is negative. Patient had leukocytosis which improved. Echocardiogram" EF 55-60% no aortic stenosis, it was done as a part of for syncope workup patient had an MRI which did not show any encephalitis. Patient is not on antibiotic at this time symptomatic supportive care for viral encephalitis. Patient has been evaluated by infectious disease team, and they recommended no antibiotics. Patient had positive blood culture of left looks contaminated and no antibiotics has been recommended by infectious disease which is on the case. Patient was still complaining of from neck pain, partially controlled with pain medication and slowly improving, however he didn' t develop any weakness or abnormal sensation. No other neurological complaints by the patient other than the pains although his been monitored for a few days. Visible of pain today was 7/10, down to 4/10, patient does not want to wait in the hospital in the morning and he was eager to go home on description pain medication, he asked for more train 400 mg every 8 hours for 3 days as well as Ultram/Ultracet for another 3 days. Which was provided for the patient. Neurology and infectious disease near the patient for discharge. Also patient has been evaluated by physical therapy who recommended home with no therapy Problem list and management plan was discussed with the patient and he verbalized understanding and acceptance Patient was found stable and can be discharged home however he needs follow-up as an outpatient. Appointments were made with Dr. Mccormick his PCP on 08/17/2018 and neurologist on 08/31/2018 and he agrees with the appointments and the timing. Estimated follow-up physical exam Gen.: Patient alert awake and oriented X 3, NOT IN DISTRESS CVS: s1-s2, RRR, no murmur CHEST:bilateral CTA, no wheezing or crepitation Abdomen: Soft, no tenderness, no distention, positive bowel sounds Extremities: No leg edema or induration Neurological: Neck pain, cranial nerves are grossly intact. Strength in all 4 extremities upper and lower in both size is 5/5. No abnormal numbness. Sensation is symmetrical and intact on both sides. Gait is normal. Time spent more than 35 minutes Patient Condition at Discharge: Fair Plan - Discharge Summary Discharge Rx Participant: Yes New Discharge Prescriptions: New Ibuprofen [Motrin] 400 mg PO Q8HR PRN 3 Days #9 tab PRN Reason: Pain traMADol-ACETAMINOP 37.5-325MG [Ultracet] 1 each PO Q6HR PRN 3 Days #12 tab PRN Reason: Pain Continue Multivitamin/Iron/Folic Acid [Centrum Adults Tablet] 1 tab PO DAILY Discontinued Acetaminophen 40 mg/1.25 ml [Tylenol 40 mg/1.25 ml Oral Syringe] 160 mg PO Q4H PRN PRN Reason: Pain Or Fever > 100.5 Discharge Medication List Multivitamin/Iron/Folic Acid [Centrum Adults Tablet] 1 tab PO DAILY 08/04/18 [ History] Ibuprofen [Motrin] 400 mg PO Q8HR PRN 3 Days #9 tab 08/11/18 [Rx] traMADol-ACETAMINOP 37.5-325MG [Ultracet] 1 each PO Q6HR PRN 3 Days #12 tab 09/28 [Rx] Follow up Appointment(s)/Referral(s): Kylee Brown MD [Primary Care Provider] - 08/17/18 1:50 pm Feroz Grimaldo MD [STAFF PHYSICIAN] - 08/31/18 3:00 pm Activity/Diet/Wound Care/Special Instructions: Pt may need indigent funds Regular diet Activity is limited till you see your doctor Discharge Disposition: HOME SELF-CARE
--- NOTE | 2018-08-11 17:38 | P.PN ---
Subjective Progress Note Date: 08/11/18 This patient is a 28-year-old right-handed white male who was initially admitted to Hospital with symptoms of near syncope and collapse. Patient was subsequent admitted to hospital and underwent an extensive evaluation including MRI of the brain which failed to reveal any evidence of acute stroke or hemorrhage. There was a soft tissue swelling noted on the scalp. Patient subsequently developed high-grade fever and underwent a lumbar puncture for further evaluation of possible meningitis. Patient's spinal fluid results were consistent with a viral or aseptic meningitis. He was being treated symptomatically. His blood cultures subsequently were done and came back positive for gram-positive cocci. Patient was seen by infectious disease and is positive both cultures are now felt to be likely contamination. He was on antibiotic coverage and this has been discontinued this morning. Patient is resting comfortably and is afebrile this morning. He still has some slight headache symptoms. He underwent a EEG on admission and this was reviewed yesterday with him. The EEG fails to reveal any evidence of epileptic seizure focus. His recent syncopal episode is most likely vasovagal secondary to sepsis. The patient has responded to conservative management for treatment of his aseptic meningitis. We will continue to follow his progress closely during this admission. He has been made a full admission and will be transferred to the medical floor soon. This patient is doing somewhat better today on the medical floor. He did have some discomfort earlier than the morning but this is slowly improving. His headache and neck pain symptoms also improving. Patient has been using toward all intermittently for recurrent headache pain. This seems to be mostly muscle tension and possibly related to his cervical disc disease in the neck. He has used Toradal 2-3 times in a day. Given the finding of acute aseptic meningitis this may take up to a week or more for him to feel back to baseline regarding his overall condition. The patient remains afebrile. The patient noted slight discomfort in his neck today as compared to yesterday. He does have history of having surgical procedure with a cage device in his neck from previous injury. This may be also contributing to some of his neck discomfort. He does remain afebrile today. We will continue to monitor his cultures as well as his temperature closely. We will await further recommendations from infectious disease. His overall prognosis at this time remains guarded. Case was discussed with the patient today at bedside. All of his questions were answered. Patient is requesting to be discharged home today. As noted he is afebrile and has no signs of fever at this time. We do suggest he follow up in 3-4 weeks in the outpatient neurology clinic for further reevaluation at that time. He is to be given pain medications at the time of his discharge by Dr. Coughlin. We will obtain final clearance from infectious disease prior to his discharge today. He is making slow improvement overall and we will continue close neurological follow-up for him. Objective - Vital Signs Vital signs: Vital Signs Temp 98.6 F 08/11/18 12:15 Pulse 70 08/11/18 16:00 Resp 16 08/11/18 16:00 BP 130/71 08/11/18 12:15 Pulse Ox 97 08/11/18 12:15 Intake & Output 08/10/18 08/11/18 08/11/18 18:59 06:59 18:59 Intake Total 600 425 720 Balance 600 425 720 Intake: Intake, IV Titration 600 425 Amount Sodium Chloride 0.9% 1, 600 425 000 ml @ 75 mls/hr IV . [id number] [facility] Rx#:[id number] Oral 720 Other: Voiding Method Toilet Toilet # Voids 1 3 - Exam Physical examination: PHYSICAL EXAMINATION: Patient is resting comfortably in bed. VITAL SIGNS: Blood pressure is [1:30/71]. Heart rate is [62]. Respiration is [16 ]. Temperature is [98.7]. HEENT: Head is atraumatic, neck is supple, there were no carotid bruits. CHEST: Lungs are clear to auscultation and percussion. CARDIAC: S1, S2 normal rate and rhythm. There is no murmur. ABDOMEN: Soft and nontender. Bowel sounds are present. EXTREMITIES: There is no pedal edema. Peripheral pulses are present. Neurological examination: Patient's neurological examination is nonfocal at this time. Patient appears to be much more relaxed and is in no acute distress. He does complain of mild headache this morning. He is alert and able to follow commands. His headache symptoms have improved from yesterday. He is afebrile at this time. - Labs CBC & Chem 7: 08/08/18 07:05 08/08/18 07:05 Labs: Microbiology - Last 24 Hours (Table) 08/05/18 22:51 Blood Culture - Preliminary Blood No Growth after 120 hours 08/06/18 15:05 Blood Culture - Preliminary Blood No Growth after 96 hours Assessment and Plan (1) Vasovagal syncope Current Visit: Yes Status: Acute Code(s): R55 - SYNCOPE AND COLLAPSE SNOMED Code(s): 997961683 (2) Hx of cervical spine surgery Current Visit: Yes Status: Acute Code(s): Z98.890 - OTHER SPECIFIED POSTPROCEDURAL STATES SNOMED Code(s): 254693045 (3) Head injury Current Visit: Yes Status: Acute Code(s): S09.90XA - UNSPECIFIED INJURY OF HEAD, INITIAL ENCOUNTER SNOMED Code(s): 74320221 (4) Leukocytosis Current Visit: Yes Status: Acute Code(s): D72.829 - ELEVATED WHITE BLOOD CELL COUNT, UNSPECIFIED SNOMED Code(s): 941025611 Plan: This patient is a 28-year-old male who was admitted for initial evaluation of syncope and collapse. He was up slowly found to have evidence of aseptic meningitis. He underwent a lumbar puncture which was consistent with aseptic or viral meningitis. He has been making a slow recovery. He is wishing to be discharged home today as he has remained off of antibiotics for 2 days with no recurrent fever. We suggest that he have clearance from infectious disease prior to discharge today. He is requesting some pain medication as well at the time of discharge which will be dispensed by Dr. Coughlin. The patient remains afebrile today and states he has only mild headache and neck pain symptoms. We suggest he scheduled for a follow-up in the outpatient neurology clinic in 3-4 weeks. If he has any recurrent fever he should return to the hospital for further reevaluation. Patient may be discharged home after clearance from infectious disease. Once again recommend he follow up in the outpatient neurology clinic in 3-4 weeks.
== END 2018-08-11 18:05 | disposition home or self-care (01) | DRG 76 ==
LOC: EC 12:10 → 1SOBS 16:00 → OBSVTOIN 08-06 09:01 → 3NMEDONC 08-07 10:15
PROVIDERS: ADMIT Internal Medicine; ATTEND Internal Medicine
PROC: 009U3ZX Drainage of Spinal Canal, Percutaneous Approach, Diagnostic (ICD-10-PCS; principal; 2018-08-05 17:00)
DX: A87.0 Enteroviral meningitis (principal); F17.200 Nicotine dependence, unspecified, uncomplicated; I45.10 Unspecified right bundle-branch block; M50.90 Cervical disc disorder, unspecified, unspecified cervical region; R79.1 Abnormal coagulation profile; R55 Syncope and collapse; S09.90XA Unspecified injury of head, initial encounter; S00.03XA Contusion of scalp, initial encounter; Z98.1 Arthrodesis status; Z71.6 Tobacco abuse counseling; W18.30XA Fall on same level, unspecified, initial encounter; Y92.009 Unspecified place in unspecified non-institutional (private) residence as the place of occurrence of the external cause
CPT/HCPCS: 36415; 62270; 70450; 70551; 71046; 71275; 72125; 80048; 80053; 81003; 82945; 83735; 84145; 84157; 84484; 85025; 85379; 85610; 85730; 87040; 87070; 87150; 87205; 87252; 87496; 87498; 87502; 87529; 87798; 89050; 93005; 93306; 95816; 96361; 96374; 96375; 99285

== ENCOUNTER → 2018-09-08 | Outpatient (CLI) | payer OTHER ==
--- NOTE | 2018-09-09 08:20 | US ---
EXAMINATION TYPE: US carotid duplex BILAT DATE OF EXAM: 09/08/2018 COMPARISON: NONE CLINICAL HISTORY: R55 vasovagal syncope. Syncope EXAM MEASUREMENTS: RIGHT: Peak Systolic Velocity (PSV) cm/sec ----- Right CCA: 106.0 ----- Right ICA: 81.4 ----- Right ECA: 113.6 ICA/CCA ratio: 0.8 RIGHT: End Diastole cm/sec ----- Right CCA: 26.4 ----- Right ICA: 37.1 ----- Right ECA: 16.9 LEFT: Peak Systolic Velocity (PSV) cm/sec ----- Left CCA: 116.7 ----- Left ICA: 88.8 ----- Left ECA: 87.7 ICA/CCA ratio: 0.8 LEFT: End Diastole cm/sec ----- Left CCA: 21.1 ----- Left ICA: 33.7 ----- Left ECA: 12.8 VERTEBRALS (direction of flow): Right Vertebral: Antegrade Left Vertebral: Antegrade Rhythm: Normal Bilateral intimal thickening, elevated velocity: right proximal CCA, no significant stenosis. IMPRESSION: 1. Intimal thickening without evidence of significant flow-limiting stenosis. Criteria for Assigning % of Stenosis / Diameter reduction (Estimation based on the indirect measurements of the internal carotid artery velocities (ICA PSV). 1. Normal (no stenosis)=ICA PSV < 125 cm/s: ratio < 2.0: ICA EDV<40 cm/s. 2. Less than 50% stenosis=ICA PSV < 125 cm/s: ratio < 2.0: ICA EDV<40 cm/s. 3. 50 to 69% stenosis=ICA PSV of 125 to 230 cm/s: ration 2.0 ? 4.0: ICA EDV 40-100 cm/s. 4. Greater than 70% stenosis to near occlusion= ICA PSV > 230 cm/s: ratio > 4.0: ICA EDV > 100 cm/s. 5. Near occlusion= ICA PSV velocities may be low or undetectable: variable ratio and ICA EDV. 6. Total occlusion=unable to detect flow.
== END | disposition home or self-care (01) ==
LOC: RADUSWWP 16:16
PROVIDERS: ATTEND Psychiatry & Neurology Neurology
DX: I65.23 Occlusion and stenosis of bilateral carotid arteries (principal)
CPT/HCPCS: 93880